=== PATIENT | female | born 1945 | race Caucasian/White ===

== ENCOUNTER 2023-03-22 08:51 | Outpatient (OUT) | payer MEDICARE, SELFPAY ==
--- NOTE | 2023-03-22 09:07 | MM_ITS ---
Patient: BARBARA WILLIAM Exam Date: 03/22/2023 : 1945 Gender:F Ordering : DR Camelia Najera M.D. Admission #: [id number] Family : Order #: [id number] CLICK HERE TO VIEW EXAM RADIOLOGY REPORT PROCEDURE: MM TOMOSYNTHESIS SCREENING BI COMPARISON: MG MAMM SCREEN 3D PATRICIA CAD, 02/20/2021. MG MAMM SCREEN 3D PATRICIA CAD, 02/22/2022. INDICATIONS: Screening Calculator Name NCI Breast Cancer Risk Assessment Tool 5 Year Breast Cancer Risk 1.30% Lifetime Breast Cancer Risk 2.60% Personal Breast Cancer No Personal Ovarian Cancer No Treatments None Family Cancers Aunt-maternal with breast cancer at age ~70; Father with bone cancer at age 75. LOCATION: [facility] BREAST COMPOSITION: Scattered areas fibroglandular density. FINDINGS: DIAGNOSTIC CATEGORY 1--NEGATIVE. NO CHANGE FROM COMPARISON ASSESSMENT. Scattered benign-appearing calcifications are present. Scattered benign-appearing lymph nodes are present. RIGHT BREAST: No significant suspicious finding. LEFT BREAST: No significant suspicious finding. RECOMMENDATIONS: ROUTINE MAMMOGRAM AND CLINICAL EVALUATION IN 12 MONTHS. PLEASE NOTE: A NORMAL MAMMOGRAM DOES NOT EXCLUDE THE POSSIBILITY OF BREAST CANCER. A CLINICALLY SUSPICIOUS PALPABLE LUMP SHOULD BE BIOPSIED. Dictated by: Everette Perez MD on 03/22/2023 at 10:50 Approved by: Everette Perez MD on 03/22/2023 at 10:51
[2023-03-22 09:44] LABS: Basophils Percent Auto 0.9 % (0.2-2.0); Eosinophils Absolute Auto 0.2 10^3/uL (0.0-0.7); Eosinophils Percent Auto 4.6 % (0.9-7.0); Hematocrit 42.6 % (36.0-48.0); Immature Granulocytes Abs Auto 0.01 10^3/uL (0.00-0.03); Immature Granulocytes Pct Auto 0.2 % (0.0-0.5); Lymphocytes Absolute Auto 0.8 10^3/uL (1.2-3.8); Lymphocytes Percent Auto 19.3 % (20.5-60.0); Mean Corpuscular HGB Conc 32.9 g/dL (29.9-35.2); Mean Corpuscular Hemoglobin 31.7 pg (26.7-34.0); Mean Corpuscular Volume 96.4 fL (81.0-99.0); Mean Platelet Volume 8.6 fL (9.5-13.5); Monocytes Absolute Auto 0.4 10^3/uL (0.3-0.8); Monocytes Percent Auto 8.4 % (1.7-12.0); Neutrophils Absolute Auto 2.9 10^3/uL (1.4-6.5); Neutrophils Percent Auto 66.6 % (43.0-75.0); Platelet Count 206 10^3/uL (150-450); Red Blood Count 4.42 10^6/uL (4.20-5.40); Red Cell Distribution Width 12.5 % (11.0-15.0); White Blood Count 4.3 10^3/uL (4.0-11.0)
[2023-03-22 12:09] LABS: Anion Gap 11.3; Calcium 9.3 mg/dL (8.5-10.1); Carbon Dioxide 30.6 mmol/L (21.0-32.0); Chloride 103 mmol/L (98-107); Chol HDL Ratio 3.7; Cholesterol 230 mg/dL (<=200); Estimated GFR (African America >60 (>=60); Estimated GFR (Non-African Ame 54 (>=60); Glucose 113 mg/dL (74-106); HDL Cholesterol 63 mg/dL (40-60); Potassium 3.9 mmol/L (3.5-5.1); Sodium 141 mmol/L (136-145); Triglycerides 90 mg/dL (<=150)
== END 2023-03-22 08:52 | disposition home or self-care (01) ==
LOC: MAMMO 08:51
PROVIDERS: PCP Family Medicine; Visit Provider Family Medicine
DX: Z12.31 Encounter for screening mammogram for malignant neoplasm of breast (principal); Z80.3 Family history of malignant neoplasm of breast; Z80.9 Family history of malignant neoplasm, unspecified
CPT/HCPCS: 36415; 77063; 77067; 80048; 80061; 85025

== ENCOUNTER 2024-03-26 08:40 | Outpatient (OUT) | payer MEDICARE, SELFPAY ==
--- NOTE | 2024-03-26 08:49 | MM_ITS ---
Patient Name: BARBARA WILLIAM MR#: [id number] : 1945 Exam Date: 03/26/2024 Ordering Doctor: DR Camelia Najera M.D. RADIOLOGY REPORT PROCEDURE: MM TOMOSYNTHESIS SCREENING BI COMPARISON: MM TOMOSYNTHESIS SCREENING BI, 03/22/2023. MG MAMM SCREEN 3D PATRICIA CAD, 02/22/2022. MG MAMM SCREEN 3D PATRICIA CAD, 02/20/2021. MG MAMM PATRICIA SCRN W CAD DIG, 10/13/2012. INDICATIONS: Screening Calculator Name NCI Breast Cancer Risk Assessment Tool 5 Year Breast Cancer Risk 1.30% Lifetime Breast Cancer Risk 2.40% Personal Breast Cancer No Personal Ovarian Cancer No Treatments None Family Cancers Aunt-maternal with breast cancer at age ~70; Father with bone cancer at age 75. LOCATION: [facility] BREAST COMPOSITION: There are scattered areas of fibroglandular density. FINDINGS: DIAGNOSTIC CATEGORY 1--NEGATIVE. RIGHT BREAST: No significant suspicious finding. No significant change has occurred. LEFT BREAST: No significant suspicious finding. No significant change has occurred. RECOMMENDATIONS: ROUTINE MAMMOGRAM AND CLINICAL EVALUATION IN 12 MONTHS. PLEASE NOTE: A NORMAL MAMMOGRAM DOES NOT EXCLUDE THE POSSIBILITY OF BREAST CANCER. A CLINICALLY SUSPICIOUS PALPABLE LUMP SHOULD BE BIOPSIED. Dictated by: Jonny Hernandez M.D. on 03/29/2024 at 18:59 Approved by: Jonny Hernandez M.D. on 03/29/2024 at 19:01
[2024-03-26 08:50] LABS: Basophils Absolute Auto 0.1 10^3/uL (0.0-0.1); Basophils Percent Auto 1.1 % (0.2-2.0); Eosinophils Absolute Auto 0.3 10^3/uL (0.0-0.7); Hematocrit 43.6 % (36.0-48.0); Hemoglobin 14.2 g/dL (12.0-16.0); Immature Granulocytes Abs Auto 0.02 10^3/uL (0.00-0.03); Immature Granulocytes Pct Auto 0.4 % (0.0-0.5); Lymphocytes Absolute Auto 1.1 10^3/uL (1.2-3.8); Mean Corpuscular HGB Conc 32.6 g/dL (29.9-35.2); Mean Corpuscular Hemoglobin 31.5 pg (26.7-34.0); Mean Corpuscular Volume 96.7 fL (81.0-99.0); Mean Platelet Volume 8.6 fL (9.5-13.5); Monocytes Absolute Auto 0.5 10^3/uL (0.3-0.8); Monocytes Percent Auto 9.9 % (1.7-12.0); Neutrophils Absolute Auto 2.7 10^3/uL (1.4-6.5); Neutrophils Percent Auto 58.6 % (43.0-75.0); Platelet Count 233 10^3/uL (150-450); Red Blood Count 4.51 10^6/uL (4.20-5.40); Red Cell Distribution Width 12.6 % (11.0-15.0); White Blood Count 4.7 10^3/uL (4.0-11.0)
--- OUTSIDE RECORDS SUMMARY | 2024-03-26 08:50 | XMS_ITS | CCD ---
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 emergency department (room). Dr. Wisdom obtained history and examined the patient, I am acting as scribe for Dr. Wisdom/lesley, PLAN: We have discussed (L) knee xrays with patient at bedside. Patient is pleased with her left knee progress as she admits her left knee is better now than it was prior to sx. She has good strength / ROM of her left knee with examination today. After examination of her right knee today we are recommending a referral to Dr. Quick to further discuss visco. We have discussed her HEP and restrictions and will see her back in 3 months to reassess her right knee, if exam warrants we may recommend a (R) TKA. Tamela Wisdom D.O. documented in this encounter [facility] 03-18-2023 Evaluation note Encounter Date Diagnosis Assessment Notes Mar, Medicare annual wellness visit, subsequent (ICD-10 - Z00.00) Personalized health advice was given to the beneficiary including a written plan for screenings discussed and provided. Advanced care planning reviewed and/or information given as requested. Additional counseling was provided here today in regards to, [ ]. The above visit was performed by [ ], under direct supervision of [ ]. Document reviewed and amended by provider signed below. Mar, Ganglion of right wrist (ICD-10 - M67.431) Declines referral to ortho at this time. Mar, Overactive bladder (ICD-10 - N32.81) chronic problem. pt states it is resolved with this med. Mar, Essential (primary) hypertension (ICD-10 - I10) Blood pressure remains well controlled at this time. Denies cardiac symptoms. Shows no signs or symptoms or poor control. Patient to continue with above medication and we will continue to monitor. Advised to pay attention to body and symptoms. Any developing patterns. Stay well hydrated. Mar, Screening mammogram for breast cancer (ICD-10 - Z12.31) [employer] Other Evaluation noteNo [employer] Other Evaluation noteNo assessment information available [facility] Work Phone: Evaluation note* Diagnosis Acute pain of left knee- Primary History of total knee arthroplasty, left Primary osteoarthritis of right knee documented in this encounter [facility]* Diagnosis Onset Date Resolution Status Other chronic pain acute Primary osteoarthritis of right knee acute [facility] Work Phone: Evaluation note* Diagnosis Onset Date Resolution Status Other chronic pain acute Primary osteoarthritis of right knee acute Essential (primary) hypertension acute Screening mammogram for breast cancer acute [facility] Work Phone: Evaluation note* Diagnosis Intermediate stage nonexudative age-related macular degeneration of both eyes- Primary Bilateral posterior capsular opacification Unspecified after-cataract Dry eyes Unspecified tear film insufficiency Blepharitis of upper and lower eyelids of both eyes, unspecified type documented in this encounter [facility] HealthcareHistory general Narrative - Reported* Type Description Date Medical History Problem Title : ADL Summary, Problem Description : ADL Summary, Problem Comment : Bathing~independent^Dressing~independent^Eating~independent^Guy leting~independent^Transferring~independent^Continence~independ ent, Problem Status : Active,, Medical History Problem Title : Adul t BMI between 22 kg/m2 and 30 kg/m2, Problem Description : Adult BMI between 22 kg/m2 and 30 kg/m2, Problem Comment : 0~0~0, Problem Status : Active,, Medical History Problem Title : Adul t BMI greater than or equal to 30 kg/m2, Problem Description : Adult BMI greater than or equal to 30 kg/m2, Problem Comment : 0~0~0, Problem Status : Active,, Medical History Problem Title : Adul t BMI less than 22 kg/m2, Problem Description : Adult BMI less than 22 kg/m2, Problem Comment : 0~0~0, Problem Status : Active,, Medical History Problem Title : adva nced directive reviewed, Problem Description : advanced directive reviewed, Problem Comment : Done, Problem Status : Active,, Medical History Problem Title : card iac risk group, Problem Description : cardiac risk group, Problem Comment : B, Problem Status : Active,, Medical History Problem Title : ches t wall assessment, physical exam, Problem Description : chest wall assessment, physical exam, Problem Comment : no deformities or breast masses noted. , Problem Status : Active,, Medical History Problem Title : Chil d BMI less than 18.5 kg/m2, Problem Description : Child BMI less than 18.5 kg/m2, Problem Comment : 0~0~0, Problem Status : Active,, Medical History Problem Title : comp liance with medical treatment, Problem Description : compliance with medical treatment, Problem Comment : Done, Problem Status : Active,, Medical History Problem Title : gloria nary heart disease (CHD), calculated 10 year mortality risk, Problem Description : coronary heart disease (CHD), calculated 10 year mortality risk, Problem Comment : 11 %, Problem Status : Active,, Medical History Problem Title : Depr ession Screening, Problem Description : Depression Screening, Problem Comment : Negative, Problem Status : Active,, Medical History Problem Title : Depr ession: Baseline PHQ-9 total score?, Problem Description : Depression: Baseline PHQ-9 total score?, Problem Comment : 0, Problem Status : Active,, Medical History Problem Title : Diab etes Mellitus, Problem Description : Diabetes Mellitus, Problem Comment : No, Problem Status : Active,, Medical History Problem Title : Fall assessment-Total score, Problem Description : Fall assessment-Total score, Problem Comment : Complete Low Risk, Problem Status : Active,, Medical History Problem Title : Fall Risk Assessment: I am worried about falling, Problem Description : Fall Risk Assessment: I am worried about falling, Problem Comment : No, Problem Status : Active,, Medical History Problem Title : Fall Risk Assessment: Sometimes I feel unsteady when I am walking, Problem Description : Fall Risk Assessment: Sometimes I feel unsteady when I am walking, Problem Comment : No, Problem Status : Active,, Medical History Problem Title : fall s in the last twelve months, Problem Description : falls in the last twelve months, Problem Comment : No, Problem Status : Active,, Medical History Problem Title : Fall s: Risk Assessment - Patient screened for falls, fall risk, Problem Description : Falls: Risk Assessment - Patient screened for falls, fall risk, Problem Comment : Done, Problem Status : Active,, Medical History Problem Title : get up and go (mobility test), Problem Description : get up and go (mobility test), Problem Comment : 1, Problem Status : Active,, Medical History Problem Title : hype rtension, hx of, Problem Description : hypertension, hx of, Problem Comment : yes, Problem Status : Active,, Medical History Problem Title : IADL Summary, Problem Description : IADL Summary, Problem Comment : Transportation~independent^Meal/Food Preparation~independent^Shopping Errands~independent^Housekeeping/Chores~independent^Money Management/Finances~independent^Medication Management~independent^Ability to Use Telephone~independent^Laundry~independent, Problem Status : Active,, Medical History Problem Title : Inju ry sustained from fall(s)?, Problem Description : Injury sustained from fall(s)?, Problem Comment : No, Problem Status : Active,, Medical History Problem Title : Is P atient on Medicare. Used for Residency Programs to evaluate precepting guidelines from Medicare, Problem Description : Is Patient on Medicare. Used for Residency Programs to evaluate precepting guidelines from Medicare, Problem Comment : Yes, Problem Status : Active,, Medical History Problem Title : [facility] Annual Wellness Exam, Problem Description : Medicare Annual Wellness Exam, Problem Comment : [id number], Problem Status : Active,, Medical History Problem Title : [facility] Part B,CMOD Checklist #1, Problem Description : Medicare Part B,CMOD Checklist #1, Problem Comment : Yes, Problem Status : Active,, Medical History Problem Title : Ment al Status Exam summary of all, Problem Description : Mental Status Exam summary of all, Problem Comment : Orientation to Time~10/05^Orientation to Place~10/05^Registration~08/03^Attention/Calculation~10/05^Recall~08/03 ^Language-name 2 objects~2/2^Language-repeat~06/03^Language-follow 3-step command~08/03^Language-read and follow direction~06/03^Write a sentence~06/03^Copy design~06/03, Problem Status : Active,, Medical History Problem Title : Ment al Status Exam total score, Problem Description : Mental Status Exam total score, Problem Comment : , Problem Status : Active,, Medical History Problem Title : mini mental status exam, score, Problem Description : mini mental status exam, score, Problem Comment : 30, Problem Status : Active,, Medical History Problem Title : no k nown problems, Problem Description : no known problems, Problem Comment : F, Problem Status : Active,, Medical History Problem Title : Numb er of previous fall in past year, Problem Description : Number of previous fall in past year, Problem Comment : 0, Problem Status : Active,, Medical History Problem Title : oste oporosis risk, Problem Description : osteoporosis risk, Problem Comment : No, Problem Status : Active,, Medical History Problem Title : past medical history E&M, Problem Description : past medical history E&M, Problem Comment : Fibrocystic breast disease Cervical lymphadenopathy - benign biopsy Choleithiasis, Problem Status : Active,, Medical History Problem Title : past medical history reviewed, Problem Description : past medical history reviewed, Problem Comment : reviewed - no changes required, Problem Status : Active,, Medical History Problem Title : Teresa ent Health Questionaire 9 item inventory, Problem Description : Patient Health Questionaire 9 item inventory, Problem Comment : None, Problem Status : Active,, Medical History Problem Title : PHQ- 9 (patient questionnaire) score, Problem Description : PHQ-9 (patient questionnaire) score, Problem Comment : 0, Problem Status : Active,, Medical History Problem Title : PHQ- 9 Diagnosis, Problem Description : PHQ-9 Diagnosis, Problem Comment : No indication of depression, Problem Status : Active,, Medical History Problem Title : PHQ2 Questionairre Score, Problem Description : PHQ2 Questionairre Score, Problem Comment : 0, Problem Status : Active,, Medical History Problem Title : PHQ9 Question One score, Problem Description : PHQ9 Question One score, Problem Comment : 0, Problem Status : Active,, Medical History Problem Title : PHQ9 Question Two score, Problem Description : PHQ9 Question Two score, Problem Comment : 0, Problem Status : Active,, Medical History Problem Title : kamran l disease, hx of, Problem Description : renal disease, hx of, Problem Comment : No, Problem Status : Active,, Medical History Problem Title : very low density lipoproteins, Problem Description : very low density lipoproteins, Problem Comment : 23.0, Problem Status : Active,, Surgical History Problem Title : L kn ee replacement - Stepanic 03/2021, Problem Status : Active, Surgical History Problem Title : past surgical history reviewed, Problem Description : past surgical history reviewed, Problem Comment : reviewed - no changes required, Problem Status : Active, Surgical History Problem Title : surg ical procedures, hx of, Problem Description : surgical procedures, hx of, Problem Comment : Lumbar surgery 2000 - Olivia L hand carpal tunnel surgery - Stepanic 07/18, Problem Status : Active, Surgical History Problem Title : surg ical procedures, hx of, Problem Description : surgical procedures, hx of, Problem Comment : Lumbar surgery 2000 - Olivia, Problem Status : Active, Surgical History 1: Problem Title : s urgical procedures, hx of, Problem Description : surgical procedures, hx of, Problem Comment : Lumbar surgery 2000 - Olivia L hand carpal tunnel surgery - Artis 07/18 L knee arthroscopic surgery 04/2017 - Dr. Wisdom, Problem Surgical History 2: Status : Active, [employer] Other Reason for referral (narrative)* Consultation (Routine) - Authorized Specialty Diagnoses / Procedures Referred By Contalonso t Referred To Contact Pain Medicine Diagnoses Primary osteoarthritis of right knee Procedures AR OFFICE[facility]OUTPATIENT [facility] 60 MINUTES Jr. Tamela Wisdom DO [address] [facility] [address] [place] [address] Regino Quick MD [address] [phone] Referral ID Status Reason Start Date Expiration Date Visits Requested Visits Authorized [id number] Authorized Consult and Treat 03/06/2024 09/02/2024 1 1 [facility] Summary Purpose Family History No Family History Records FoundNo Family History Records FoundNo Family History Records FoundNo Family History Records Found Advance Directives No Advanced Directives Records Found Advance Directive Response Recorded Date/ Time Advance Directives No August 30, 024 11:16am Chief Complaint and Reason for Visit Chief Complaint Cough Chief Complaint REFF BY DR. TAMELA WELLS Reason for Visit Other chronic pain Primary osteoarthritis of right knee Chief Complaint REFF BY DR. TAMELA WELLS MEDICARE WELLNESS Reason for Visit Other chronic pain Primary osteoarthritis of right knee Essential (primary) hypertension Screening mammogram for breast cancer Additional Source Comments INFORMATION SOURCE (unrecogn ized section and content) DATE CREATED AUTHOR 06/26/2021 [facility] DATE CREATED AUTHOR AUTHOR'S ORGANIZ ATION 11/25/2021 [facility] DATE CREATED AUTHOR AUTHOR'S ORGANIZ ATION 03/24/2022 [facility] DATE CREATED AUTHOR AUTHOR'S ORGANIZ ATION 03/26/2024 [facility] EPIC REASON FOR VISIT (unrecogniz ed section and content) Reason Comments Post-op Care Teams (unrecognized sec tion and content) Team Status: Active Member Role Status Dates Camelia Crooks MD Primary Care Provider Active Team Status: Inactive Member Role Status Dates Camelia Crooks MD Primary Care Provider Active Start: August 31, 2023 End: August 31, 2023 Radha Panda OENOLOGIST-C Attending Provider Active S tart: August 31, 2023 End: August 31, 2023 [employer] Relationship Specialty Start Date End Date Camelia Crooks MD [address] [place] [phone] PCP - General Family Medicine 06/06/23 Out[employer] Leader Relationship Specialty Start Date End Date Camelia Crooks MD [address] [place] [phone] PCP - General Family Medicine 06/06/23 Team Status: Inactive Member Role Status Dates Camelia Crooks MD Primary Care Provider Active Start: March 13, 2024 End: March 13, 2024 Regino Quick MD Attending Provider Active Sta rt: March 13, 2024 End: March 13, 2024 Tamela Wisdom Jr, DO Referring Provider Active Start: March 13, 2024 End: March 13, 2024 Team Status: Inactive Member Role Status Dates Camelia Crooks MD Primary Care Provide r, Attending Provider Active Start: March 19, 2024 End: March 19, 2024 Outdoor Adventure Leader Relationship Specialty Start Date End Date Camelia Crooks MD [address] [place] [phone] PCP - General Family Medicine 06/06/23 Outdoor Adventure Leader Relationship Specialty Start Date End Date Camelia Crooks MD [address] [place] [phone] PCP - General Family Medicine 06/06/23 Goals (unrecognized section and content) Goals may be documented in a n alternate section FOR RECORDS PERTAINING TO PATIENTS WHO ARE OR HAVE BEEN ENROLLED IN A CHEMICAL DEPENDENCY/SUBSTANCEABUSE PROGRAM, SOME INFORMATION MAY BE OMITTED. This clinical summary was aggregated from multiple sources. Caution should be exercised in using it in the provision of clinical care. This summary normalizes information from multiple sources, and as a consequence, information in this document may materially change the coding, format and clinical context of patient data. In addition, data may be omitted in some cases. CLINICAL DECISIONS SHOULD BE BASED ON THE PRIMARY CLINICAL RECORDS. [facility] [employer] [facility]. provides no warranty or guarantee of the accuracy or completeness of information in this document.
[2024-03-26 09:43] LABS: Alanine Aminotransferase 29 U/L (14-59); Albumin Globulin Ratio 1.1; Albumin Level 3.6 g/dL (3.4-5.0); Alkaline Phosphatase 88 U/L (46-116); Anion Gap 14.7; Aspartate Amino Transferase 20 U/L (15-37); BUN Creatinine Ratio 15.3; Bilirubin Total 0.6 mg/dL (0.2-1.0); Calcium 9.1 mg/dL (8.5-10.1); Carbon Dioxide 29.3 mmol/L (21.0-32.0); Chloride 104 mmol/L (98-107); Chol HDL Ratio 3.2; Cholesterol 194 mg/dL (<=200); Estimated GFR (African America 58 (>=60 mL/min/1.73m^2); Estimated GFR (Non-African Ame 48 (>=60 mL/min/1.73m^2); Globulin 3.4 g/dL; Glucose 120 mg/dL (74-106); HDL Cholesterol 61 mg/dL (40-60); Sodium 144 mmol/L (136-145); Triglycerides 86 mg/dL (<=150); VLDL CHOLESTEROL 17.2 mg/dL
== END 2024-03-26 08:41 | disposition home or self-care (01) ==
LOC: MAMMO 08:40
PROVIDERS: PCP Family Medicine; Visit Provider Family Medicine
DX: Z12.31 Encounter for screening mammogram for malignant neoplasm of breast (principal); I10 Essential (primary) hypertension; Z80.3 Family history of malignant neoplasm of breast; Z80.8 Family history of malignant neoplasm of other organs or systems
CPT/HCPCS: 36415; 77063; 77067; 80053; 80061; 85025

== ENCOUNTER 2024-07-16 08:56 | Emergency (ER) | payer MEDICARE, SELFPAY ==
[2024-07-16 09:01] VITALS: BP 150/96; PULSE 98; TEMP 36.8; O2SAT 95; BMI 29.1
--- OUTSIDE RECORDS SUMMARY | 2024-07-16 09:08 | XMS_ITS | CCD ---
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 Best Eye Response: (E4) spontaneous [...] patient cognitively impaired not cognitively impaired Interventions: [place] Fall Interventions: LOW INTERVENTIONS: *patient oriented to [...] Past Medical History Reviewedno Electronic Signatures: Antonella Carter (RN) (Signed 21-Nov-2021 16:34) Entered: Risk Screens, Pain, Travel History, Chart Review, Scores, Past Medical History Authored: Quick Triage, Risk Screens, Pain, Travel History, Chart Review, Scores, Past Medical History Last Updated: 21-Nov-2021 16:34 by Antonella Carter (RN) [facility] XR KUB 1 VIEWon 08-04-2021 XR [...] by: JAVI NAVARRETE Date: 2021-08-04 11:53 Normal [facility] XR femur BIon 02-01-2021 XR femur BI [facility] Main Pooler [address] [place] [address] XRay Report Signed Patient: Barbara Boss MR#: [id number] : 1945 Acct:[id number] Age/Sex: 75 / F ADM Date: 02/01/21 Loc: ICXD Room: Type: [facility] Attending Dr: Robin Veloz PA-C Ordering Provider: Robin Veloz PA-C Date of Service: 02/01/21 XR/XR femur BI: Z01.818 ([id number]) XR/XR tibia/fibula BI: Z01.818 Copies to: Robin Veloz PA-C 2 views bilateraltibia and fibula [...] Tylor Hough M.D.02/01/2021 2:43 PM Dictation Location: [place] [address] Transcribed By: [facility] 02/01/21 1443 Dictated By: Tylor Hough DO 02/01/21 1441 Signed By: 02/01/21 1443 Normal [facility] Vital Signs Date Time Vital Sign Value Performing Clinician Facility 07-06-2024 10:28-0500 Body height 167.[address] [facility] 07-06-2024 10:28-0500 Body mass index (BMI) [Ratio] 29.3 kg/m2 [facility] 07-06-2024 10:28-0500 Body weight 82.[address] [facility] 07-06-2024 10:28-0500 Diastolic blood pressure 98 mm[Hg] [facility] 07-06-2024 10:28-0500 Heart rate 81 /min [facility] 07-06-2024 10:28-0500 Systolic blood pressure 153 mm[Hg] [facility] 05-11-2024 09:38-0500 Diastolic blood pressure 80 mm[Hg] [facility] 05-11-2024 09:38-0500 Heart rate 55 /min [facility] 05-11-2024 09:38-0500 SaO2% (BldA) [Mass fraction] 97 % [facility] 05-11-2024 09:38-0500 Systolic blood pressure 130 mm[Hg] [facility] 04-28-2024 12:59-0500 Body height 167.[address] [facility] 04-28-2024 12:59-0500 Body mass index (BMI) [Ratio] 29.3 kg/m2 [facility] 04-28-2024 12:59-0500 Body temperature 97.2 [degF] [facility] 04-28-2024 12:59-0500 Body weight 82.[address] [facility] 04-28-2024 12:59-0500 Diastolic blood pressure 82 mm[Hg] [facility] 04-28-2024 12:59-0500 Heart rate 74 /min [facility] 04-28-2024 12:59-0500 SaO2% (BldA) [Mass fraction] 94 % [facility] 04-28-2024 12:59-0500 Systolic blood pressure 138 mm[Hg] [facility] 04-02-2024 16:05-0400 Diastolic blood pressure 80 mm[Hg] [facility] 04-02-2024 16:05-0400 Heart rate 88 /min [facility] 04-02-2024 16:05-0400 SaO2% (BldA) [Mass fraction] 93 % [facility] 04-02-2024 16:05-0400 Systolic blood pressure 122 mm[Hg] [facility] 03-19-2024 09:39-0400 Body height 167.[address] [facility] 03-19-2024 09:39-0400 Body mass index (BMI) [Ratio] 29.3 kg/m2 [facility] 03-19-2024 09:39-0400 Body weight 82.[address] [facility] 03-19-2024 09:39-0400 Diastolic blood pressure 88 mm[Hg] [facility] 03-19-2024 09:39-0400 Heart rate 89 /min [facility] 03-19-2024 09:39-0400 Systolic blood pressure 138 mm[Hg] [facility] 03-13-2024 09:02-0400 Body weight 83.[address] [facility] 03-13-2024 09:02-0400 Diastolic blood pressure 80 mm[Hg] [facility] 03-13-2024 09:02-0400 Heart rate 93 /min [facility] 03-13-2024 09:02-0400 Systolic blood pressure 134 mm[Hg] [facility] 08-31-2023 11:41-0400 Body height 167.[address] [facility] 08-31-2023 11:41-0400 Body mass index (BMI) [Ratio] 29 kg/m2 [facility] 08-31-2023 11:41-0400 Body temperature 98.1 [degF] [facility] 08-31-2023 11:41-0400 Body weight 81.[address] [facility] 08-31-2023 11:41-0400 Heart rate 94 /min [facility] 08-31-2023 11:41-0400 Respiratory rate 18 /min [facility] 08-31-2023 11:41-0400 SaO2% (BldA) [Mass fraction] 96 % [facility] 03-18-2023 09:30-0400 Body height 167.64 cm Camelia Crooks Other [facility] Other 03-18-2023 09:30-0400 Body mass index (BMI) [Ratio] 29.15 kg/m2 Camelia Crooks Other [facility] Other 03-18-2023 09:30-0400 Body weight 81.92 kg Camelia Crooks Other [facility] Other 03-18-2023 09:30-0400 Diastolic blood pressure 91 mm[Hg] Camelia Crooks Other [facility] Other 03-18-2023 09:30-0400 Systolic blood pressure 135 mm[Hg] Camelia Crooks Other [facility] Other Encounters Encounter Date Encounter Type Care Provider Facility Start: 07-06-2024 End: 07-06-2024 ambulatory [facility] [place] Work Phone: Start: 07-06-2024 End: 07-06-2024 Patient encounter procedure [facility] Work Phone: Start: 06-10-2024 End: 06-10-2024 Bamboo flowsheet Jr. Tamela Gallegos Stepgonzalez DO Work Phone: [facility] Start: 06-10-2024 End: 06-10-2024 Bamboo flowsheet Jr. Tamela Gallegos Stepanic DO Work Phone: [facility] Start: 06-10-2024 End: 06-10-2024 Office outpatient visit 15 minutes Jr. Tamela Wisdom DO Work Phone: [facility] Comment on above: Primary osteoarthrit is of right knee (Primary Dx); Pain in joint of right knee Start: 06-10-2024 End: 06-10-2024 ambulatory TAMELA ROBERT Not Available Start: 05-22-2024 End: 05-22-2024 Patient encounter procedure [facility] Physician [facility] Work Phone: Start: 05-11-2024 End: 05-11-2024 Patient encounter procedure [facility] Physician [facility] Work Phone: Start: 04-28-2024 End: 04-28-2024 Patient encounter procedure [facility] Phys[facility] Work Phone: Start: 04-02-2024 End: 04-02-2024 ambulatory [facility] Work Phone: Start: 04-02-2024 End: 04-02-2024 Patient encounter procedure [facility] Physician [facility] Work Phone: Start: 03-26-2024 Non-patient / Non-visit [facility] Physician [facility] [place] Work Phone: Start: 03-24-2024 End: 03-24-2024 Bamboo flowsheet Barb Mackayer DO Work Phone: [facility] Start: 03-24-2024 End: 03-24-2024 Bamboo flowsheet Barb Velozhler DO Work Phone: [facility] Start: 03-24-2024 End: 03-24-2024 ambulatory BARB VELAZQUEZ Not Available Start: 03-19-2024 End: 03-19-2024 ambulatory [facility] Work Phone: Start: 03-19-2024 End: 03-19-2024 Patient encounter procedure [facility] Phys[facility] Work Phone: Start: 03-13-2024 End: 03-13-2024 ambulatory [facility] Work Phone: Start: 03-13-2024 End: 03-13-2024 Patient encounter procedure [facility] Physician [facility] Work Phone: Start: 03-06-2024 End: 03-06-2024 Bamboo flowsheet Jr. Tamela Gallegos Stepgonzalez DO Work Phone: [facility] Start: 03-06-2024 End: 03-06-2024 Bamboo flowsheet JrKacey Gallegos Stepgonzalez DO Work Phone: [facility] Start: 03-06-2024 End: 03-06-2024 ambulatory .TAMELA Not Available Start: 03-06-2024 End: 03-06-2024 Office outpatient visit 25 minutes Jr. Tamela Wisdom DO Work Phone: [facility] Comment on above: Acute pain of left k nee (Primary Dx); History of total knee arthroplasty, left; Primary osteoarthritis of right knee Start: 11-15-2023 End: 11-15-2023 ambulatory BARB VELAZQUEZ Not Available Start: 10-15-2023 End: 10-15-2023 ambulatory BARB VELAZQUEZ Not Available Start: 10-08-2023 End: 10-08-2023 ambulatory BARB VELAZQUEZ Not Available Start: 09-23-2023 End: 09-23-2023 ambulatory TAMELA ROBERT Not Available Start: 09-11-2023 End: 09-11-2023 ambulatory BARB VELAZQUEZ Not Available Start: 08-31-2023 End: 08-31-2023 ambulatory [facility] Work Phone: Start: 08-31-2023 End: 08-31-2023 Patient encounter procedure [facility] Phys[facility] Work Phone: Start: 06-24-2023 End: 06-24-2023 ambulatory TAMELA ROBERT Not Available Start: 04-08-2023 End: 04-08-2023 ambulatory Camelia Crooks Other [facility] Other Start: 04-08-2023 Telephone encounter Camelia Crooks [facility] Start: 03-22-2023 End: 03-22-2023 ambulatory Camelia Crooks Other [facility] Other Start: 03-22-2023 Telephone encounter Camelia Crooks [facility] Start: 03-18-2023 End: 03-18-2023 ambulatory Camelia Crooks Other [facility] Other Start: 03-18-2023 Patient encounter procedure Camelia Crooks [facility] Start: 03-19-2022 End: 03-20-[address] CAMELIA CROOKS Facility:[facility] Start: 03-12-2022 Adult health examination Nelly Crooks Other [facility] Other Start: 03-12-2022 Pre-procedure evalua tion check Camelia Crooks Other [facility] Other Start: 02-22-2022 End: 02-23-[address] CAMELIA CROOKS Facility:[facility] Start: 08-04-2021 End: 08-05-[address] CAMELIA CROOKS Facility:[facility] Procedures Date Procedure Procedure Detail Performing Clinician Start: 03-24-2024 Computerized ophthal terrance imaging retina Barb Velazquez DO Work Phone: Start: 03-24-2024 End: 03-24-2024 [facility] medical xm&eval intermediate estab pt Intermediate [...] DO Work Phone: Start: 10-26-2014 Screening mammography M jayroberto Crooks Other General examination of patient Camelia Crooks Other Screening for malign ant neoplasm of breast Camelia Crooks Other Plan of Treatment Date Care Activity Detail Author Start: 03-03-2025 End: 03-03-2025 Patient encounter procedure 03/03/2025 10:00 AM EDT Office Visit [facility] [address] [place] [address] Jr. Tamela Wisdom, DO [address] [facility] [address] [place] [address] [facility] Start: 12-08-2024 End: 12-08-2024 Patient encounter procedure 12/08/2024 10:00 AM EDT Office Visit [facility] [address] [place] [address] Jr. Tamela Wisdom, DO [address] [place] [address] [facility] Start: 10-20-2024 End: 10-20-2024 Patient encounter procedure 10/20/2024 9:30 AM EDT Office Visit [facility] [address] [place] [address] Barb Velazquez DO [address] [place] [address] [facility] Start: 06-10-2024 End: 06-10-2024 Patient encounter procedure [facility] Comment on above: Arrived Start: 03-24-2024 End: 03-24-2024 Patient encounter procedure [facility] Comment on above: Arrived Start: 02-02-2024 Influenza vaccination Influenza Vacc ine (#1) [facility] metabo lic 2000 panel - Serum or Plasma [facility] MG Breast - bilatera l Screening [facility] Immunizations Immunization Date Immunization Notes Care Provider Fa cility 05-22-2024 influenza, high dose seasonal, preservative-free [facility] 05-22-2024 influenza virus vaccine, unspecified formulation Hugogonzalez DO Work Phone: [facility] 03-18-2023 influenza virus vaccine, unspecified formulation [facility] 03-18-2023 influenza, high dose seasonal, preservative-free Camelia Crooks Other [facility] Other 03-25-2022 COVID-19 Pfizer (Pediatric) Camelia Crooks Other [facility] 03-12-2022 influenza virus vaccine, split virus (incl. purified surface antigen) Camelia Crooks Other [facility] Other 03-12-2022 influenza virus vaccine, unspecified formulation [facility] 01-28-2020 influenza virus vaccine, split virus (incl. purified surface antigen) Camelia Crooks Other [facility] Other 01-28-2020 influenza virus vaccine, unspecified formulation [facility] 02-18-2018 influenza virus vaccine, split virus (incl. purified surface antigen) Camelia Crooks Other [facility] Other 02-18-2018 influenza virus vaccine, unspecified formulation [facility] 02-18-2018 pneumococcal conjuga te vaccine, 13 valent Cameliarobreto Crooks Other [facility] 02-18-2018 pneumococcal Conjuga te, unspecified formulation; Translations: [Need for prophylactic vaccination against Streptococcus pneumoniae (pneumococcus)] Camelia Crooks Other [facility] Other 03-17-2013 pneumococcal polysaccharide vaccine, 23 valent Camelia Crooks Other [facility] 03-17-2013 tetanus and diphther ia toxoids, adsorbed, preservative free, for adult use (5 Lf of tetanus toxoid and 2 Lf of diphtheria toxoid) Camelia Crooks Other [facility] Payers Date Payer Category Payer Medicaid [employer] MEDICARE A DVANTAGE [id number] 2023 Medicare AETNA MEDICARE A DVANTAGE AETNA MEDICARE REPLACEMENT [id number] 2023-Present [address] [place] [address] [id number] 1959 Medicare [id number] 1945 Unknown [id number] 1945 Unknown [id number] [id number] 1945 Unknown [id number] [id number] 1945 Unknown [id number] 2.16.840.1.958896.3.579.2.1259 1945 Unknown [id number] 2.16.840.1.508897.3.579.2.1259 1945 Unknown [id number] 2.16.840.1.014112.3.579.2.1259 1945 Unknown [id number] 2.16.840.1.717225.3.579.2.1259 1945 Unknown [id number] 2.16.840.1.164223.3.579.2.1259 1945 Unknown [id number] 2.16.840.1.716305.3.579.2.1259 1945 Unknown [id number] 2.16.840.1.595320.3.579.2.1259 1945 Unknown [id number] 2.16.840.1.981774.3.579.2.1259 1945 Unknown [id number] 2.16.840.1.903983.3.579.2.1259 1945 Unknown [id number] 2.16.840.1.763476.3.579.2.1259 Medicare Medicare [id number] Medicare Medicare [id number] Self-pay Self Pay [id number] Social History Date Type Detail Facility Unknown if ever smoked [facility] Other Start: 06-24-2023 End: 06-10-2024 Sex Assigned At [facility] Start: 08-31-2023 End: 08-31-2023 Tobacco smoking status NHIS Never smoked tobacco (finding) [facility] Start: 1945 Sex Assigned At Female F [facility] Start: 12-10-2022 Tobacco use and exposure Smokeless tobacco non-user [facility] Start: 11-15-2023 End: 06-10-2024 Alcoholic beverage intake Current drinker of alcohol (finding) [facility] Start: 06-24-2023 End: 06-10-2024 History of Social function [facility] How [...] at Not on file [facility] Start: 07-06-2024 Sex Female (finding) [facility] Clinical Notes 03-18-2023 to 06-10-2024 Jr. Tamela Wisdom, DO - 06/10/2024 10:00 AM EST Note Date & Type Note Facility 06-10-2024 History of Presen t illness Narrative Images from the original note were not included. HISTORY OF PRESENT ILLNESS: EST PT Barbara Boss is an 78 y.o. @ female. (EST PT) RECHECK (R) KNEE ; S/P USG CORTISONE INJ 03/13/24 (12WKS 5DAYS)- DR QUICK (PT WAS REFERRED FOR [facility]CO) XRAYS, STANDING AP 03/06/24 IN [facility] NO MRI NO MDP / PREDNISONE S/P CORTISONE INJ 03/13/24 - DR QUICK NO [facility] NO PHYSICAL THERAPY PAIN MGMT ; DR QUICK (VISCO REFERRAL) NOTES SOME IMPROVEMENT WITH THE INJECTION ( 1 INJ) ; 50% IMPROVEMENT. DENIES SWELLING. ROM IS STILL OKAY. DENIES WEAKNESS/ POPPING/ CRACKING. DIFFUSE PAIN IN THE FRONT OF THE KNEE. NO HEP. NO SUPPORT BRACES. TAKE ADVIL PRN FOR PAIN. NO CREAMS. OLD NOTE : PREVIOUS (L) TKA 03/28/21 - DR WISDOM ALLERGIES: Allergies Allergen Reactions Meperidine Sweats, chills, confusion Meperidine Hcl Other Reaction(s): Chills / Loss of Conscienace HOME MEDICATIONS: Current Outpatient Medications Medication Instructions aspirin 81 MG EC tablet 1 tablet Orally two times daily Calcium Carbonate-Vitamin D (Oyster Shell Calcium/D) 500-5 MG-MCG tablet 1 tablet, Oral, 2 times daily with meals hydroCHLOROthiazide (HYDRODIURIL) 12.5 mg, Oral, Daily RT Lutein-Zeaxanthin 25-5 MG capsule Orally Myrbetriq 50 MG 24 hr tablet Every 24 hours PHYSICAL EXAM: Knee Musculoskeletal Exam Gait Antalgic: right Inspection Leg length disparity: no discrepancy Right Erythema: none Effusion: mild Edema: none Ecchymosis: none Deformity: none Alignment: varus Palpation Right Right knee palpation is unremarkable. Increased warmth: none Masses: none Crepitus: patellofemoral and medial Tenderness: present Medial joint line: moderate Patella: mild Range of Motion Right Right knee range of motion is normal and full. Active extension: 10 Passive extension: 5 Active flexion: 115 Passive flexion: 120 Strength Right Right knee strength is normal. Extension: 5/5. Extension is affected by pain. Flexion: 5/5. Flexion is affected by pain. Instability Right Instability signs: none - stable Anterior drawer: normal Neurovascular Right Right knee neurovascular exam is normal. Pulses - PT: normal Posterior tibial: 2+ Capillary refill: warm and well-perfused Special Signs Right Right knee special signs are normal. Patellar apprehension: none General Constitutional: appears stated age Labored breathing: no Psychiatric: normal mood and affect Neurological: alert Skin: intact Lymphadenopathy: none Vitals: There is no height or weight on file to calculate BMI. Tobacco Use: Low Risk (06/10/2024) Patient History Smoking Tobacco Use: Never Smokeless Tobacco Use: Never Passive Exposure: Not on file Alcohol Use: Not At Risk (06/24/2023) AUDIT-C Frequency of Alcohol Consumption: 4 or more times a week Average Number of Drinks: 1 or 2 Frequency of Binge Drinking: Never IMAGING: Procedures No orders of the defined types were placed in this encounter. ASSESSMENT: ICD-10-CM 1. Primary osteoarthritis of right knee M17.11 2. Pain in joint of right knee M25.561 PLAN: Severe varus deformity right knee. She got a cortisone injection from pain management, not Visco supplementation. She is significantly improved and she is pleased with her progress. We'll see her back in 6 months for repeat x-rays and physical exam of her right knee. Questions answered in laymen terms at the bedside. The diagnosis, home exercise plan and any ongoing restrictions/ recommendations reviewed. If unable to be reached in office, I recommend evaluation at nearest Emergency Room if any symptoms worsened or new symptoms develop for requiring urgent evaluation. documented in this encounter [facility] 04-28-2024 Evaluation note Diagnosis Onset Date Resolution Bronchitis acute April 28, 2024 12:55pm Other chronic pain acute Decemb er 2023 9:28am Primary osteoarthritis of right knee acute May 11 9:28am [facility] Work Phone: 1(846) 275-769710-22-2024 NoteRight Eye Quality was good. Scan locations included subfoveal. Progression has been stable. Findings include abnormal foveal contour, pigment epithelial detachment. Left Eye Quality was good. Scan locations included subfoveal. Progression has been stable. Findings include normal foveal contour, pigment epithelial detachment.[facility] [id number] History of Present illness Narrative* Barb Velazquez DO - 03/24/2024 9:00 AM EDT Images from the original note were not [...] laser capsulotomy, they are to notify their agriculture department chair promptly if they have a significant change [...] lid scrubs were recommended. documented in this encounterFre[facility] [id number] History of Present illness Narrative* Jr. Tamela Wisdom DO - 03/06/2024 9:30 AM EDT Images from the original note were not included. HISTORY OF PRESENT ILLNESS: EST PT Barbara Boss is an 78 y.o. @ female. (EST PT) HERE FOR BIENNIAL CHECK OF (L) TKA 03/28/21 (~3 YRS) XRAYS DONE TODAY, 03/06/24 IN EPIC NO BONE SCAN NO MDP / PREDNISONE [...] surgical position and alignment of prosthetic components withoutevidence of loosening or wear to the femoral, [...] was prior to sx. She has good strength/ ROM of her left knee with examination today. After examination of her right knee today we are recommending a referral to Dr. Quick to further discuss visco. We have discussed her HEP and restrictions and will see her back in 3 months to reassess her right knee, if exam warrants we may recommend a (R) TKA. Tamela Wisdom D.O. documented in this encounterFreeman Cancer [id number] Evaluation note* Encounter Date Diagnosis Assessment Notes Treatment Notes Treatment Clinical Notes Mar, Medicare annual wellness visit, subsequent [...] mammogram for breast cancer (ICD-10 - Z12.31) [facility] Other Evaluation noteNo InformationNortFairmount Behavioral Health System [facility] Other Evaluation noteNo assessment information available [facility] Work Phone: Evaluation note* Diagnosis Acute pain of left knee- Primary History of total knee arthroplasty, left Primary osteoarthritis of right knee [facility] this encounter [facility] Diagnosis Onset Date Resolution Status Other chronic pain acute Primary osteoarthritis of right knee acute [facility] Work Phone: Evaluation note* Diagnosis Onset Date Resolution Status Other chronic pain acute Primary osteoarthritis of right knee acute Essential (primary) hypertension acute Screening mammogram for breast cancer acute [facility] Work Phone: Evaluation note* Diagnosis Intermediate stage nonexudative age-related macular degeneration of both eyes- Primary Bilateral posterior capsular opacification Unspecified after-cataract Dry eyes Unspecified tear film insufficiency Blepharitis of upper and lower eyelids of both eyes, unspecified type documented [facility] this encounter [facility]* Diagnosis Onset Date Resolution Status Other chronic pain acute Primary osteoarthritis of right knee acute Essential (primary) hypertension acute Medicare annual wellness visit, subsequent acute Overactive bladder acute Primary osteoarthritis of right knee acute Screening mammogram for breast cancer acute Other chronic pain acute Primary osteoarthritis of right knee acute [facility] Work Phone: Evaluation note* Diagnosis Primary osteoarthritis of right knee- Primary Pain in joint of right knee documented in this encounter [facility] general Narrative - Reported* Type Description [...] : Active,, Medical History Problem Title : [facility] Annual Wellness Exam, Problem Description : Medicare Annual Wellness Exam, Problem Comment : [id number], Problem Status : Active,, Medical History Problem Title : [facility] Part B,CMOD Checklist #1, Problem Description : Medicare Part B,CMOD Checklist #1, Problem Comment : Yes, Problem Status : Active,, Medical History Problem Title : Ment al Status Exam summary of all, Problem Description : Mental Status Exam summary of all, Problem Comment : Orientation to Time~10/05^Orientation to Place~10/05^Registration~08/03^Attention/Calculation~10/05^Recall~08/03 ^Language-name 2 objects~07/05^Language-repeat~06/03^Language-follow 3-step command~08/03^Language-read and follow direction~06/03^Write a sentence~06/03^Copy [...] hx of, Problem Comment : Lumbar surgery 2000, Problem Status : Active, Surgical History 1: Problem Title : s urgical procedures, hx of, Problem Description : surgical procedures, hx of, Problem Comment : Lumbar surgery 2000 - Olivia L hand carpal tunnel surgery - [facility] 07/18 L knee arthroscopic surgery 04/2017 - Dr. Wisdom, Problem Surgical History 2: Status : Active, [place] Other Reason for referral (narrative)* Consultation (Routine) - Authorized Specialty Diagnoses / Procedures Referred By Contac t Referred To Contact Pain Medicine Diagnoses Primary osteoarthritis of right knee Procedures [facility] [place] 60 MINUTES Jr. Tamela Wisdom DO [address] [facility] [address] [place] [address] Regino Quick MD [address] [address] Referral ID Status Reason Start Date Expiration Date Visits Requested Visits Authorized [id number] Authorized Consult and Treat 03/06/2024 09/02/2024 1 1 [facility] Summary Purpose Family History No Family History Records FoundNo Family History Records FoundNo Family History Records FoundNo Family History Records Found Advance Directives Advance Directive Response Recorded Date/ Time Advance Directives No August 30 11:16am Advance Directive Response Recorded Date/ Time Advance Directives No August 30 10:16am Chief Complaint and Reason for Visit Chief Complaint Cough Chief Complaint REFF [facility] Reason for Visit Other chronic pain Primary osteoarthritis of right knee Chief Complaint REFF BY DR. TAMELA WELLS MEDICARE WELLNESS Reason for Visit Other chronic pain Primary osteoarthritis of right knee Essential (primary) hypertension Screening mammogram for breast cancer Chief Complaint REFF BY DR. TAMELA [facility]LL[facility] STEROID INJ TO RIGHT KNEE Reason for Visit Other chronic pain Primary osteoarthritis of right knee Essential (primary) hypertension Medicare annual wellness visit, subsequent Overactive bladder Primary osteoarthritis of right knee Screening mammogram for breast cancer Other chronic pain Primary osteoarthritis of right knee Chief Complaint Admit Date cough April 28, 2024 12:55pm 6 week f/u after steroid to right knee D ecember 2023 9:28am flu shot May 22, 2024 9:41am back pain July 06, 2024 1 0:09am Reason for Visit Admit Date Bronchitis April 28, 2024 12:55pm Other chronic pain May 11, 2024 9 :28am Primary osteoarthritis of right knee Dec ember 2023 9:28am Additional Source Comments INFORMATION SOURCE (unrecogn ized section and content) DATE CREATED AUTHOR 06/26/2021 [facility] DATE CREATED AUTHOR AUTHOR'S ORGANIZ ATION 11/25/2021 [facility] DATE CREATED AUTHOR AUTHOR'S ORGANIZ ATION 03/24/2022 [facility] DATE CREATED AUTHOR AUTHOR'S ORGANIZ ATION 06/15/2024 [facility] EPIC REASON FOR VISIT (unrecogniz ed section and content) Reason Comments Post-op Reason Comments Pain Care Teams (unrecognized sec tion and content) Team Status: Active Member Role Status Dates Camelia Crooks MD Primary Care Provider Active Team Status: Inactive Member Role Status Dates Camelia Crooks MD Primary Care Provider Active Start: August 31, 2023 End: August 31, 2023 Radha Panda , HARVINDER-C Attending Provider Active S tart: August 31, 2023 End: August 31, 2023 Drug And Alcohol Counsellor Relationship Specialty Start Date End Date Camelia Crooks MD [address] [place] [address] PCP - General Family Medicine 06/06/23 Drug And Alcohol Counsellor Relationship Specialty Start Date End Date Camelia Crooks MD [address] [place] [address] PCP - General Family Medicine 06/06/23 Team [...] March 19, 2024 End: March 19, 2024 Drug And Alcohol Counsellor Relationship Specialty Start Date End Date Camelia Crooks MD [address] [place] [address] PCP - General Family Medicine 06/06/23 Drug And Alcohol Counsellor Relationship Specialty Start Date End Date Camelia Crooks MD [address] [place] [address] PCP - General Family Medicine 06/06/23 Team Status: Active Member Role Status Dates Camelia Crooks MD Primary Care Provide r, Attending Provider Active Start: March 26, 2024 Team Status: Inactive Member Role Status Dates Camelia Crooks MD Primary Care Provider Active Start: April 02, 2024 End: April 02, 2024 Regino Quick MD Attending Provider Active Sta rt: April 02, 2024 End: April 02, 2024 Drug And Alcohol Counsellor Relationship Specialty Start Date End Date Camelia Crooks MD [address] [place] [address] PCP - [facility] Medicine 06/06/23 Drug And Alcohol Counsellor Relationship Specialty Start Date End Date Camelia Crooks MD [address] [place] [address] PCP - [facility] Medicine 06/06/23 Team Status: Inactive Member Role Status Dates Camelia Crooks MD Primary Care Provider Active Start: April 28, 2024 End: April 28, 2024 Archana Gonzalez APRN BULLET SWAGING MACHINE ADJUSTER-C Attending Provider Active Start: April End: April 28, 2024 Team Status: Inactive Member Role Status Dates Camelia Crooks MD Primary Care Provider Active Start: May 11, 2024 End: May 11, 2024 Regino Quick MD Attending Provider Active Sta rt: May 11, 2024 End: May 11, 2024 Team Status: Inactive Member Role Status Dates Camelia Crooks MD Primary Care Provider Active Start: May 22, 2024 End: May 22, 2024 Erik Bagley DO Attending Provider Active Sta rt: May 22, 2024 End: May 22, 2024 Team Status: Inactive Member Role Status Dates Camelia Crooks MD Primary Care Provide r, Attending Provider Active Start: July 06, 2024 End: July 06, 2024 Goals (unrecognized section and content) Goals may [...] BE BASED ON THE PRIMARY CLINICAL RECORDS. [facility]. provides no warranty or guarantee of the accuracy or completeness of information in this document.
--- NOTE | 2024-07-16 09:10 | XR_ITS ---
The [address] [address] Patient Name: BARBARA WILLIAM MRN: [id number] date: 1945 Sex: F Assigned Patient Location: ER Current Patient Location: ER Accession/Order Number: [id number] Exam Date: 07/16/2024 09:16 Report Date: 07/16/2024 09:38 At the request of: BELÉN CANAS Procedure: XR wrist LT min 3V PROCEDURE: XR wrist LT min 3V HISTORY: fall COMPARISON: None. FINDINGS: BONES:Transverse fracture through distal radial metaphysis with slight posterior offset (3 mm) and moderate dorsal angulation of the distal articular surface. No appreciable fracture of the ulna. Intact radiocarpal joint. Marked degenerative changes of the scaphoid-trapezium carpal joint. SOFT TISSUES:Mild soft tissue swelling surrounding the wrist. EFFUSION:None visible. OTHER: Negative. XR/XR wrist LT min 3V IMPRESSION: 1. Acute mildly displaced and moderately angulated fracture of the distal radial metaphysis. 2. Degenerative changes of the carpal joints. Electronically authenticated by: ALVINO ALDRIDGE Date: 07/16/2024 09:38
--- NOTE | 2024-07-16 09:11 | ED_ITS ---
HPI HPI - Extremity Injury (Upper) General Chief Complaint: Extremity Injury, Upper Stated Complaint: FELL, UPPER EXTREMITY PAIN Time Seen by Provider: 07/16/24 08:57 Source: patient Mode of arrival: walk-in History of Present Illness HPI narrative: 78-year-old female presents for pain in her left wrist. She slipped and fell on ice about an hour ago. She is right-handed. No weakness or numbness. She is worried she broke her wrist. Related Data Allergies Allergy/AdvReac Type Severity Reaction Status Date / Time meperidine (From Demerol) AdvReac Severe Vomiting Verified 07/16/24 09:01 Opioid HPI Opioid Management Most Recent Pain and Opioid Data: Last Pain Scale 6 07/16/24 09:06 07/16/24 Review of Systems ROS Narrative A ten point review of systems is negative except as noted above. PFSH PFSH Social History Little interest or pleasure in doing things: not at all Feeling down, depressed, or hopeless: not at all Exam Narrative Exam Narrative: Nurses note and vital signs reviewed and patient is not hypoxic. General: The patient appears in no acute distress. She is sitting on the cart. Skin: Warm, dry, no pallor noted. There is no rash noted. Head: Normocephalic, atraumatic Eye: Normal conjunctiva, no drainage Ears, Nose, Mouth, and Throat: oral mucosa is moist. Nares patent. Cardiovascular: Regular Rate and Rhythm Respiratory: Patient is in no distress, no accessory muscle use Back: non-tender GI: Nontender Musculoskeletal: She has swelling and some tenderness in the left wrist. Radial pulse 2+. Left elbow nontender and fingers have full range of motion. Skin intact. Neurological: A&O, normal speech Psychiatric: Cooperative Constitutional Vital Signs, click to edit/add: Last Vital Signs Temp 98.2 F 07/16/24 09:01 Pulse 98 H 07/16/24 09:01 Resp 18 07/16/24 09:01 BP 150/96 H 07/16/24 09:01 Pulse Ox 95 07/16/24 09:01 Course Vital Signs Vital signs: Vital Signs Temperature 98.2 F 07/16/24 09:01 Pulse Rate 98 H 07/16/24 09:01 Respiratory Rate 18 07/16/24 09:01 Blood Pressure 150/96 H 07/16/24 09:01 Pulse Oximetry 95 07/16/24 09:01 Temperature 98.2 F 07/16/24 09:01 Pulse Rate 98 H 07/16/24 09:01 Respiratory Rate 18 07/16/24 09:01 Blood Pressure 150/96 H 07/16/24 09:01 Pulse Oximetry 95 07/16/24 09:01 MDM - Extremity Injury (Upper) MDM Narrative Medical decision making narrative: Distal radius fracture is identified. The likely need for surgery was discussed with her and she has a preferred orthopedist, Dr. Wisdom. She will follow-up with him. Splint applied by me, application is appropriate, she is neurovascular intact. Sling also applied, application checked by me and found to be appropriate, she is neurovascular intact. Treatment diagnosis and follow- up were discussed with the patient. Differential Diagnosis Differential diagnosis: Likely other (Wrist sprain, wrist fracture) Imaging Data Left wrist x-ray: Radiologist's impression: ITS Impressions Wrist X-Ray 07/16/24 09:10 IMPRESSION: 1. Acute mildly displaced and moderately angulated fracture of the distal radial metaphysis. 2. Degenerative changes of the carpal joints. Electronically authenticated by: ALVINO ALDRIDGE Date: 07/16/2024 09:38 Discharge Plan Discharge Chief Complaint: Extremity Injury, Upper Clinical Impression: Fracture of left wrist Patient Disposition: Home, Self-Care Time of Disposition Decision: 09:59 Condition: Good Mode of Transportation: Private Vehicle Print Language: Georgian Instructions: Wrist Fracture in Adults (ED) Additional Instructions: Follow-up with Dr. Wisdom Referrals: Camelia Najera MD [Primary Care Provider] - 1 week
== END 2024-07-16 10:22 | disposition home or self-care (01) ==
PROVIDERS: Emergency Provider Emergency Medicine; PCP Family Medicine
DX: S52.502A Unspecified fracture of the lower end of left radius, initial encounter for closed fracture (principal); W00.0XXA Fall on same level due to ice and snow, initial encounter
CPT/HCPCS: 73110; 99283

== ENCOUNTER 2024-07-22 08:56 | Outpatient (OUT) | payer MEDICARE, SELFPAY ==
--- NOTE | 2024-07-22 09:04 | ECG_ITS ---
The [facility] Test Date: 2024-07-22 Pat Name: BARBARA WILLIAM Department: Room: - Gender: Female Education Trainer: : 1945 Requested By: Jonny Cantrell Order Number: [id number] Reading MD: NAS VILLANUEVA Measurements Intervals [place] Rate: 84 P: 61 KS: 142 QRS: 16 QRSD: 92 T: 46 QT: 349 QTc: 413 Interpretive Statements SINUS RHYTHM No previous ECG available for comparison Electronically Signed On 07-22-2024 18:28:29 EST by NAS VILLANUEVA
[2024-07-22 09:58] LABS: Basophils Percent Auto 0.6 % (0.2-2.0); Eosinophils Absolute Auto 0.3 10^3/uL (0.0-0.7); Eosinophils Percent Auto 5.9 % (0.9-7.0); Hematocrit 39.7 % (36.0-48.0); Hemoglobin 13.1 g/dL (12.0-16.0); Immature Granulocytes Abs Auto 0.01 10^3/uL (0.00-0.03); Immature Granulocytes Pct Auto 0.2 % (0.0-0.5); Lymphocytes Absolute Auto 1.1 10^3/uL (1.2-3.8); Lymphocytes Percent Auto 21.5 % (20.5-60.0); Mean Corpuscular Hemoglobin 31.6 pg (26.7-34.0); Mean Corpuscular Volume 95.9 fL (81.0-99.0); Mean Platelet Volume 8.5 fL (9.5-13.5); Monocytes Absolute Auto 0.3 10^3/uL (0.3-0.8); Monocytes Percent Auto 6.1 % (1.7-12.0); Neutrophils Absolute Auto 3.2 10^3/uL (1.4-6.5); Neutrophils Percent Auto 65.7 % (43.0-75.0); Platelet Count 245 10^3/uL (150-450); Red Blood Count 4.14 10^6/uL (4.20-5.40); White Blood Count 4.9 10^3/uL (4.0-11.0)
[2024-07-22 10:03] LABS: Anion Gap 13.1; BUN Creatinine Ratio 15.5; Carbon Dioxide 29.6 mmol/L (21.0-32.0); Chloride 103 mmol/L (98-107); Estimated GFR (African America >60 (>=60 mL/min/1.73m^2); Estimated GFR (Non-African Ame 52 (>=60 mL/min/1.73m^2); Glucose 137 mg/dL (74-106); Potassium 3.7 mmol/L (3.5-5.1); Sodium 142 mmol/L (136-145)
== END 2024-07-22 08:57 | disposition home or self-care (01) ==
LOC: PST 08:57
PROVIDERS: PCP Family Medicine; Visit Provider Orthopaedic Surgery
DX: Z01.810 Encounter for preprocedural cardiovascular examination (principal); Z01.812 Encounter for preprocedural laboratory examination; S59.292A Other physeal fracture of lower end of radius, left arm, initial encounter for closed fracture
CPT/HCPCS: 80048; 85025; 93005

== ENCOUNTER 2024-07-27 12:14 | Day surgery (SDC) | payer MEDICARE, SELFPAY ==
[2024-07-22 09:39] VITALS: BP 157/86; PULSE 92; TEMP 36.2; O2SAT 96; BMI 29.5
[2024-07-27] VITALS (10 sets, daily range): BP systolic 149–185; BP diastolic 72–101; PULSE 81–94; TEMP 36–36.3; O2SAT 92–100; BMI 29.1
--- OUTSIDE RECORDS SUMMARY | 2024-07-27 12:26 | XMS_ITS | CCD ---
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 Immunization Date Immunization Notes Care Provider Fa cility 05-22-2024 influenza, high dose seasonal, preservative-free [facility] 05-22-2024 influenza virus vaccine, unspecified formulation Hugogonzalez DO Work Phone: [facility] 03-18-2023 influenza virus vaccine, unspecified formulation [facility] 03-18-2023 influenza, high dose seasonal, preservative-free Camelia Crooks Other [facility] Other 03-25-2022 COVID-19 Pfizer (Pediatric) Camelia Crooks Other [facility] 03-12-2022 influenza virus vaccine, split virus (incl. purified surface antigen) Camelia Crooks Other [facility] Other 03-12-2022 influenza virus vaccine, unspecified formulation [facility] 01-28-2020 influenza virus vaccine, split virus (incl. purified surface antigen) Camelia Crooks Other [facility] Other 01-28-2020 influenza virus vaccine, unspecified formulation [facility] 02-18-2018 influenza virus vaccine, split virus (incl. purified surface antigen) Camelia Crooks Other [facility] Other 02-18-2018 influenza virus vaccine, unspecified formulation [facility] 02-18-2018 pneumococcal conjuga te vaccine, 13 valent Cameliaroberto Crooks Other [facility] 02-18-2018 pneumococcal Conjuga te, unspecified formulation; Translations: [Need for prophylactic vaccination against Streptococcus pneumoniae (pneumococcus)] Camelia Crooks Other [facility] Other 03-17-2013 pneumococcal polysaccharide vaccine, 23 valent Camelia Crooks Other [facility] 03-17-2013 tetanus and diphther ia toxoids, adsorbed, preservative free, for adult use (5 Lf of tetanus toxoid and 2 Lf of diphtheria toxoid) Camelia Crooks Other [facility] Payers Date Payer Category Payer Medicaid AETNA MEDICARE A DVANTAGE [id number] 2023 Medicare AETNA MEDICARE A DVANTAGE AETNA MEDICARE REPLACEMENT [id number] 2023-Present [address] [place] [address] [id number] 1959 Medicare [id number] 1945 Unknown [id number] 1945 Unknown [id number] 2.16.840.1.420162.3.579.2.593 1945 Unknown [id number] 2.16.840.1.045126.3.579.2.593 1945 Unknown [id number] 2.16.840.1.578051.3.579.2.1259 1945 Unknown [id number] 2.16.840.1.147727.3.579.2.1259 1946 Unknown [id number] 2.16.840.1.767792.3.579.2.1259 1946 Unknown [id number] 2.16.840.1.826231.3.579.2.1259 1946 Unknown [id number] 2.16.840.1.493385.3.579.2.1259 1946 Unknown [id number] 2.16.840.1.006114.3.579.2.1259 1946 Unknown [id number] 2.16.840.1.568776.3.579.2.1259 1946 Unknown [id number] 2.16.840.1.305669.3.579.2.1259 1946 Unknown [id number] 2.16.840.1.608622.3.579.2.1259 1945 Unknown [id number] 2.16.840.1.682389.3.579.2.1259 Medicare Medicare [id number] Medicare Medicare [id number] Self-pay Self Pay [id number] Social History Date Type Detail Facility Unknown if ever smoked [employer] Other Start: 06-24-2023 End: 06-10-2024 Sex Assigned At [facility] Start: 08-31-2023 End: 08-31-2023 Tobacco smoking status NHIS Never smoked tobacco (finding) [facility] Start: 1945 Sex Assigned At Female [facility] Start: 12-10-2022 Tobacco use and exposure [...] [facility] Start: 07-06-2024 Sex Female (finding) [facility] Clinical Notes 03-18-2023 to 06-10-2024 Jr. [...] FOR VISCO) XRAYS, STANDING AP 03/06/24 IN [facility] NO MRI NO MDP / PREDNISONE S/P [...] requiring urgent evaluation. documented in this encounter [facility] 04-28-2024 Evaluation note Diagnosis Onset Date Resolution Bronchitis acute April 28, 2024 12:55pm Other chronic pain acute Decemb er 2023 9:28am Primary osteoarthritis of right knee acute May 11 9:28am [facility] Work Phone: [phone]) 725-908110-22-2024 NoteRight Eye Quality was good. Scan locations included subfoveal. Progression has been stable. Findings include abnormal foveal contour, pigment epithelial detachment. Left Eye Quality was good. Scan locations included subfoveal. Progression has been stable. Findings include normal foveal contour, pigment epithelial detachment.[facility] [id number] History of Present illness Narrative* Barb Velazquez [...] laser capsulotomy, they are to notify their director dermatology promptly if they have a significant change [...] lid scrubs were recommended. documented in this encounterN[facility] [id number] History of Present illness Narrative* Jr. Tamela [...] TKA. Tamela Wisdom D.O. documented in this encounterN[facility] [id number] Evaluation note* Encounter Date Diagnosis Assessment Notes [...] mammogram for breast cancer (ICD-10 - Z12.31) [facility] Other Evaluation [facility]No [facility] Other Evaluation noteNo assessment information available [facility] Work Phone: Evaluation note* Diagnosis Acute pain of left knee- Primary History of total knee arthroplasty, left Primary osteoarthritis of right knee documented [facility] this encounter [facility] Diagnosis Onset Date Resolution Status Other chronic pain acute Primary osteoarthritis of right knee acute [facility] Work Phone: Evaluation note* Diagnosis Onset Date Resolution Status Other chronic pain acute Primary osteoarthritis of right knee acute Essential (primary) hypertension acute Screening mammogram for breast cancer acute [facility] Work Phone: Evaluation note* Diagnosis Intermediate stage [...] acute Primary osteoarthritis of right knee acute [facility] Work Phone: Evaluation note* Diagnosis Primary osteoarthritis [...] : Active,, Medical History Problem Title : [facility] Annual Wellness Exam, Problem Description : Medicare Annual Wellness Exam, Problem Comment : [id number], Problem Status : Active,, Medical History Problem Title : [facility] Part B,CMOD Checklist #1, Problem Description : [...] Problem Surgical History 2: Status : Active, [employer] Other Reason for referral (narrative)* Consultation (Routine) - Authorized Specialty Diagnoses / Procedures Referred By Contac t Referred To Contact Pain Medicine Diagnoses Primary osteoarthritis of right knee Procedures [facility] 60 MINUTES Jr. Tamela Wisdom DO [address] [facility] [address] [place] [address] Regino Quick MD [address] [address] Referral ID Status Reason Start Date Expiration Date Visits Requested Visits Authorized [id number] Authorized Consult and Treat 03/06/2024 09/02/2024 1 [...] Cough Chief Complaint REFF BY [facility] Reason for Visit Other chronic pain Primary osteoarthritis of right knee Chief Complaint REFF BY DR. TAMELA WELLS MEDICARE WELLNESS Reason for Visit Other chronic pain Primary osteoarthritis of right knee Essential (primary) hypertension Screening mammogram for breast cancer Chief Complaint REFF BY DR. TAMELA Disla [facility] MEDIC[facility] WELLNESS STEROID INJ TO RIGHT KNEE [...] section and content) DATE CREATED AUTHOR 06/26/2021 [facility] DATE CREATED AUTHOR AUTHOR'S ORGANIZ ATION 11/25/2021 [facility] DATE CREATED AUTHOR AUTHOR'S ORGANIZ ATION 03/24/2022 [facility] DATE CREATED AUTHOR AUTHOR'S ORGANIZ ATION 06/15/2024 [facility] dical Specialists EPIC REASON FOR VISIT [...] August 31, 2023 End: August 31, 2023 Grip Assembler Relationship Specialty Start Date End Date Camelia Crooks MD [address] [place] [address] PCP - General Family Medicine 06/06/23 Grip Assembler Relationship Specialty Start Date End Date Camelia Crooks MD [address] [place] [address] PCP - General Family Medicine 06/06/23 Team [...] March 19, 2024 End: March 19, 2024 Grip Assembler Relationship Specialty Start Date End Date Camelia Crooks MD [address] [place] [address] PCP - General Family Medicine 06/06/23 Grip Assembler Relationship Specialty Start Date End Date Camelia Crooks MD [address] [place] [address] PCP - General Family Medicine 06/06/23 Team [...] April 02, 2024 End: April 02, 2024 Grip Assembler Relationship Specialty Start Date End Date Camelia Crooks MD [address] [place] [address] PCP - [facility] Medicine 06/06/23 Grip Assembler Relationship Specialty Start Date End Date Camelia Crooks MD [address] [place] [address] PCP - [facility] Medicine 06/06/23 Team Status: Inactive Member Role Status Dates Camelia Crooks MD Primary Care Provider Active Start: April 28, 2024 End: April 28, 2024 Archana Gonzalez APRN [employer]C Attending Provider Active Start: April End: April [...] BE BASED ON THE PRIMARY CLINICAL RECORDS. [facility] [employer] [facility]. provides no warranty or guarantee of the accuracy or completeness of information in this document.
[2024-07-27] MEDS: LACTATED RINGER'S SOLUTION 1,000 ML 50 ML IV (12:42)
--- NOTE | 2024-07-27 13:19 | PC.NURSE ---
(1256) Final timeout completed. 1258- O2 applied at 2l/min via nc. Patient placed on monitor. Patients HOB elevated. Left arm positioned per Dr. Garcia. Left arm landmarked per US per Dr. Garcia. 1300- Patient medicated with Versed 1mg IV as ordered per Dr. Garcia. 1302- Left axillary block injected. 1307- Left axillary block completed. Patient tolerated it well. See posted vital signs.
[2024-07-27] MEDS: CEFAZOLIN SODIUM 2 GM/50 ML D5W PREMIX IV (13:41)
--- NOTE | 2024-07-27 13:46 | P.ORPRC_ITS ---
Procedure Note Date of procedure: 07/27/24 Pre-op diagnosis: Left distal radius fracture, greater than 3 part intra- articular Post-op diagnosis: same as pre-op Procedure: Procedure: Open reduction internal fixation left distal radius fracture Surgeon: Ceasar Cantrell MD Anesthesia: General with regional block Estimated blood loss: Minimal Specimens: None Complications: None Condition: Stable Consent: The risks, benefits, potential complications and outcomes of the proposed treatment(s) were discussed at length with the patient and family members present. They understood and have had all of their questions answered to their satisfaction and have elected to proceed. Findings: Reduced distal radius fracture with appropriate implant placement and lengths Detailed Description of Procedure: After informed consent was obtained the patient brought to the operating room where general anesthetic was administered. Preoperatively regional block was placed. A well-padded proximal arm tourniquet was placed on the right arm was prepped and draped in usual sterile fashion. The arm was elevated, exsanguinated, and the tourniquet was inflated to 200 mmHg. A 6 cm incision made overlying the flexor carpi radialis tendon overlying the distal radius. Blunt dissection was carried down through soft tissue. The flexor carpi radialis tendon was retracted ulnarly along with the flexor pollicis longus muscle and tendon. Pronator quadratus was incised in an L- shaped fashion off of the bone. Distal radius fracture was identified at this point and found to be intra-articular and comminuted. Using a combination of traction and manipulation and reduction was performed and appropriate reduction was confirmed under x-ray. A Synthes by column distal radius plate was then placed and provisionally held into place with K wires. This was adjusted until the appropriate position was achieved under multiple fluoroscopy views. The plate was then first fixed with a 2.7 bicortical nonlocking screw in the oblong hole in the shaft. Holding the distal fragments reduced a total of 6 unicortical 2.4 mm locking screws were placed at the distal fragments followed by an additional 2 screws placed in the shaft in a bicortical locking fashion. Final x-rays in multiple planes revealed a reduced distal radius fracture with appropriate implant placement and lengths. Wound was irrigated. Pronator quadratus was repaired with an 0 Vicryl suture. Skin was closed with observable suture in layers. Well-padded dressing was placed followed by a fiberglass volar splint. Turning was deflated. Patient was awakened and brought to the recovery room in stable condition. There are no intraoperative or immediate postoperative complications. Anesthesia: regional and General-LMA Surgeon: Jonny Cantrell Estimated blood loss (mL): 5 Pathology: none sent Condition: stable Disposition: PACU
--- NOTE | 2024-07-27 16:28 | PC.NURSE ---
Educated patient regarding nerve block and not having feeling in arm. Reviewed pain medicine ordered with the patient, as well as the alternative if the narcotic med was not required. Stated to always elevate arm to decrease pain and swelling as well as use ice to back of wrist at intervals to assist with this as well. Patient verbalized understanding of all discharge teaching and what was reviewed with her.
== END 2024-07-27 16:20 | disposition home or self-care (01) ==
PROVIDERS: PCP Family Medicine; Visit Provider Orthopaedic Surgery
PROC: (CPT 25609; principal; 2024-07-27 13:15)
DX: S52.572A Other intraarticular fracture of lower end of left radius, initial encounter for closed fracture (principal); W00.0XXA Fall on same level due to ice and snow, initial encounter; Z90.49 Acquired absence of other specified parts of digestive tract
CPT/HCPCS: 25609; 36415; 64417; 76000; C1713; J0690; J1100; J2250; J2371; J2405; J2704; J2795

== ENCOUNTER 2024-08-10 09:30 | Outpatient (OUT) | payer MEDICARE, SELFPAY ==
--- NOTE | 2024-08-10 | XR_ITS ---
The [address] [address] Patient Name: BARBARA WILLIAM MRN: [id number] date: 1945 Sex: F Assigned Patient Location: Current Patient Location: Accession/Order Number: [id number] Exam Date: 08/10/2024 14:05 Report Date: 08/10/2024 14:09 At the request of: MICHAEL CAMPBELL DPKishore Procedure: XR wrist LT min 3V LEFT WRIST - 3 views COMPARISON: 07/16/2024 and 07/27/2024 (intraoperative) CLINICAL DATA: Follow-up distal radius fracture. Left wrist pain. AP, lateral and oblique views were obtained. There is osteopenia. There is a fracture at the distal radius status post internal fixation with a volar plate and screws. There is improvement of alignment from the preoperative exam, particularly on the lateral view. No additional acute fracture or dislocation is identified. There is degenerative change involving the lateral intercarpal and first carpal metacarpal joints. There is still mild soft tissue swelling. XR/XR wrist LT min 3V IMPRESSION: DISTAL RADIUS FRACTURE STATUS POST INTERNAL FIXATION WITH IMPROVED ALIGNMENT FROM THE PREOPERATIVE EXAM. Impression dictated by: Brissa Lerma M.D.08/10/2024 2:09 PM Dictation Location: [place] [address] Electronically authenticated by: [id number] Y Date: 08/10/2024 14:09
--- OUTSIDE RECORDS SUMMARY | 2024-08-10 09:54 | XMS_ITS | CCD ---
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 virus vaccine, unspecified formulation Hugogonzalez DO Work Phone: [facility] 03-18-2023 influenza virus vaccine, unspecified formulation [facility] 03-18-2023 influenza, high dose seasonal, preservative-free Camelia Crooks Other [facility] Other 03-25-2022 COVID-19 Pfizer (Pediatric) Camelia Crooks Other [facility] 03-12-2022 influenza virus vaccine, split virus (incl. purified surface antigen) Camelia Crooks Other [facility] Other 03-12-2022 influenza virus vaccine, unspecified formulation [facility] 01-28-2020 influenza virus vaccine, split virus (incl. purified surface antigen) Camelia Crooks Other [facility] Other 01-28-2020 influenza virus vaccine, unspecified formulation [facility] 02-18-2018 influenza virus vaccine, split virus (incl. purified surface antigen) Camelia Crooks Other [facility] Other 02-18-2018 influenza virus vaccine, unspecified formulation [facility] 02-18-2018 pneumococcal conjuga te vaccine, 13 valent Cameliaroberto Crooks Other [facility] 02-18-2018 pneumococcal Conjuga te, unspecified formulation; Translations: [Need for prophylactic vaccination against Streptococcus pneumoniae (pneumococcus)] Camelia Crooks Other [facility] Other 03-17-2013 pneumococcal polysaccharide vaccine, 23 valent Camelia Crooks Other [facility] 03-17-2013 tetanus and diphther ia toxoids, adsorbed, preservative free, for adult use (5 Lf of tetanus toxoid and 2 Lf of diphtheria toxoid) Camelia Crooks Other [facility] Payers Date Payer Category Payer Medicaid [employer] MEDICARE A DVANTAGE [id number] 2023 Medicare AETNA MEDICARE A DVANTAGE AETNA MEDICARE REPLACEMENT [id number] 2023-Present [address] [place] [address] [id number] 1959 Medicare [id number] 1945 Unknown [id number] [id number] 1945 Unknown [id number] 2.16.840.1.443469.3.579.2.593 1945 Unknown [id number] 2.16.840.1.146022.3.579.2.593 1945 Unknown [id number] 2.16.840.1.199284.3.579.2.1259 1945 Unknown [id number] 2.16.840.1.917593.3.579.2.1259 1945 Unknown [id number] 2.16.840.1.715347.3.579.2.1259 1945 Unknown [id number] 2.16.840.1.312053.3.579.2.1259 1945 Unknown [id number] 2.16.840.1.482429.3.579.2.1259 1945 Unknown [id number] 2.16.840.1.782017.3.579.2.1259 1945 Unknown [id number] 2.16.840.1.473927.3.579.2.1259 1946 Unknown [id number] 2.16.840.1.413392.3.579.2.1259 1945 Unknown [id number] 2.16.840.1.525956.3.579.2.1259 1945 Unknown [id number] 2.16.840.1.685023.3.579.2.1259 Medicare Medicare [id number] Medicare Medicare [id number] Self-pay Self Pay [id number] Social History Date Type Detail Facility Unknown if ever smoked [facility] Other Start: 06-24-2023 End: 06-10-2024 Sex Assigned At [facility] Start: 08-31-2023 End: 08-31-2023 Tobacco smoking status NHIS Never smoked tobacco (finding) [facility] Start: 1945 Sex Assigned At Female F [facility] Start: 12-10-2022 Tobacco use and exposure Smokeless [...] [facility] Start: 07-06-2024 Sex Female (finding) [facility] Clinical Notes 03-18-2023 to 06-10-2024 Jr. [...] FOR VISCO) XRAYS, STANDING AP 03/06/24 IN [facility] NO MRI NO MDP / PREDNISONE [...] requiring urgent evaluation. documented in this encounter [facility] 04-28-2024 Evaluation note Diagnosis Onset Date Resolution Bronchitis acute April 28, 2024 12:55pm Other chronic pain acute Decemb er 2023 9:28am Primary osteoarthritis of right knee acute May 11 9:28am [facility] Work Phone: 1(150) 583-884610-22-2024 NoteRight Eye Quality was good. Scan locations included subfoveal. Progression has been stable. Findings include abnormal foveal contour, pigment epithelial detachment. Left Eye Quality was good. Scan locations included subfoveal. Progression has been stable. 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 documented in this encounterSaint Francis Medical [id number] History of Present illness Narrative* Jr. Tamela [...] TKA. Tamela Wisdom D.O. documented in this encounterSaint Francis Medical [id number] Evaluation note* Encounter Date Diagnosis Assessment Notes [...] mammogram for breast cancer (ICD-10 - Z12.31) [facility] Other Evaluation noteNo [facility] Other Evaluation noteNo assessment information available [facility] Work Phone: Evaluation note* Diagnosis Acute pain of left knee- Primary History of total knee arthroplasty, left Primary osteoarthritis of right knee documented in this encounter [facility]* Diagnosis Onset Date Resolution Status Other chronic pain acute Primary osteoarthritis of right knee acute [facility] Work Phone: Evaluation note* Diagnosis Onset Date Resolution Status Other chronic pain acute Primary osteoarthritis of right knee acute Essential (primary) hypertension acute Screening mammogram for breast cancer acute [facility] Work Phone: Evaluation note* Diagnosis Intermediate [...] acute Primary osteoarthritis of right knee acute [facility] Work Phone: Evaluation note* Diagnosis Primary [...] : Active,, Medical History Problem Title : [facility] Annual Wellness Exam, Problem Description : Medicare Annual Wellness Exam, Problem Comment : G0439, Problem Status : Active,, Medical History Problem Title : [facility] Part B,CMOD Checklist #1, Problem Description [...] Problem Surgical History 2: Status : Active, [facility] Other Reason for referral (narrative)* Consultation (Routine) - Authorized Specialty Diagnoses / Procedures Referred By Contac t Referred To Contact Pain Medicine Diagnoses Primary osteoarthritis of right knee Procedures [place] OFFICE/OUTPATIENT [facility] 60 MINUTES Jr. Tamela Wisdom DO [address] [facility] [address] [place] [address] Regino Quick MD [address] [address] Referral ID Status Reason Start Date Expiration Date Visits Requested Visits Authorized [id number] Authorized Consult and Treat 03/06/2024 09/02/2024 1 [...] Cough Chief Complaint RE[facility] Reason for Visit Other chronic pain Primary osteoarthritis of right knee Chief Complaint REFF BY DR. TAMELA WELLS MEDICARE WELLNESS Reason for Visit Other chronic pain Primary osteoarthritis of right knee Essential (primary) hypertension Screening mammogram for breast cancer Chief Complaint REFF BY DR. TAMELA [facility] WELLNESS STEROID INJ TO RIGHT [...] section and content) DATE CREATED AUTHOR 06/26/2021 [facility] DATE CREATED AUTHOR AUTHOR'S ORGANIZ ATION 11/25/2021 [facility] DATE CREATED AUTHOR AUTHOR'S ORGANIZ ATION 03/24/2022 [facility] DATE CREATED AUTHOR AUTHOR'S ORGANIZ ATION 06/15/2024 [facility] EPIC REASON FOR VISIT (unrecogniz [...] August 31, 2023 End: August 31, 2023 Mail Inserter Relationship Specialty Start Date End Date Camelia Crooks MD [address] [place] [address] PCP - General Family Medicine 06/06/23 Mail Inserter Relationship Specialty Start Date End Date Camelia Crooks MD [address] [place] [address] PCP - General Family Medicine 06/06/23 Team [...] March 19, 2024 End: March 19, 2024 Mail Inserter Relationship Specialty Start Date End Date Camelia Crooks MD [address] [place] [address] PCP - General Family Medicine 06/06/23 Mail Inserter Relationship Specialty Start Date End Date Camelia Crooks MD [address] [place] [address] PCP - General Family Medicine 06/06/23 Team [...] April 02, 2024 End: April 02, 2024 Mail Inserter Relationship Specialty Start Date End Date Camelia Crooks MD [address] [place] [address] PCP - [facility] Medicine 06/06/23 Mail Inserter Relationship Specialty Start Date End Date Camelia Crooks MD [address] [place] [address] PCP - [facility] Medicine 06/06/23 Team Status: Inactive Member Role Status Dates Camelia Crooks MD Primary Care Provider Active Start: April 28, 2024 End: April 28, 2024 Archana Gonzalez APRN [employer] Attending Provider Active Start: April End: April [...] BE BASED ON THE PRIMARY CLINICAL RECORDS. [facility] [employer] [facility]. provides no warranty or guarantee of the accuracy or completeness of information in this document.
== END 2024-08-10 09:31 | disposition home or self-care (01) ==
PROVIDERS: PCP Family Medicine; Visit Provider Orthopaedic Surgery
DX: S52.572A Other intraarticular fracture of lower end of left radius, initial encounter for closed fracture (principal)
CPT/HCPCS: 73110

== ENCOUNTER 2024-09-07 11:04 | Outpatient (OUT) | payer MEDICARE, SELFPAY ==
--- NOTE | 2024-09-07 | XR_ITS ---
[facility] [place] [id number] Patient Name: BARBARA WILLIAM MRN: [id number] date: 1945 Sex: F Assigned Patient Location: Current Patient Location: Accession/Order Number: [id number] Exam Date: 09/07/2024 13:21 Report Date: 09/07/2024 13:22 At the request of: ALVINO WARE MD Procedure: XR wrist LT min 3V 3 views left wrist plain film COMPARISON: 08/10/2024 HISTORY: Follow-up left wrist ORIF ACUTE FINDINGS: Continued interval healing with stable alignment DEGENERATIVE CHANGE: Unremarkable SOFT TISSUE FINDINGS: Unremarkable JOINT EFFUSION: None POSTOP CHANGES: No hardware complication. BONE MINERALIZATION: Adequate XR/XR wrist LT min 3V IMPRESSION: Interval healing with stable alignment and hardware. Impression dictated by: Tylor Hough M.D.09/07/2024 1:22 PM Dictation Location: [place] [address] Electronically authenticated by: [id number] Y Date: 09/07/2024 13:22
== END 2024-09-07 11:05 | disposition home or self-care (01) ==
LOC: EC 11:04
PROVIDERS: PCP Family Medicine; Visit Provider Orthopaedic Surgery
DX: S52.572D Other intraarticular fracture of lower end of left radius, subsequent encounter for closed fracture with routine healing (principal)
CPT/HCPCS: 73110

== ENCOUNTER 2025-03-31 08:51 | Outpatient (OUT) | payer MEDICARE, SELFPAY ==
--- OUTSIDE RECORDS SUMMARY | 2024-07-27 09:30 | XMS_ITS ---
Author Organization [facility] Address [address] [place] [address] Care Team Providers Care Wildlife Ecologist Name Role Phone Jonny Cantrell Unavailable [phone] REASON FOR VISIT OPEN REDUCTION INTERNAL FIXATION LEFT DISTAL RADIUS FRACTURE Encounters Encounter Location Date Provider Diagnosis [facility] [address] [place] [address] 07/27/2024 Jonny Cantrell Other intraarticular fracture of lower end of left radius, initial encounter for closed fracture S52.572A Assessments Encounter Date Diagnosis (ICD Code) Assessment Notes Treatment Notes Treatment Clinical Notes Section Notes 07/27/2024 Other intraarticular fracture of lower end of left radius, initial encounter for closed fracture (ICD-10 - S52.572A) Plan Of Treatment No Information Progress Notes * BARBARA WILLIAM LDOB:[birth year] (79 yo F)Acc No.[id number]:07/27/2024 Patient:?STEWART BARBARA Mitchell :?MARU CaballeroOB:1945???Age:79 Y ???Sex:FemaleDate:07/27/2024Phone:[phone]:[address] [place] [id number] * Images: * Electronic signature of Jonny Cantrell MD on 03/31/2025 at 08:54 AM EDTSign off status: Pending * Provider: Naif Cantrell MD Date: 0 07/27/2024 Generated for Printing/Faxing/eTransmitting on:?03/31/2025 08:54 AM EDT
--- OUTSIDE RECORDS SUMMARY | 2025-03-29 07:11 | XMS_ITS | Continuity of Care Document ---
Author Organization [facility] Address [address] [place] [address] Phone Care Team Providers Care I&C Technician Name Role Phone Camelia Najera MD Primary Care Provider Erik Bagley DO Attending Provider Care Teams Patient Care Team Team Status: Active Member Role/Relationship Status Dates Camelia Najera MD Primary Care Provider Active Patient Care Team Team Status: Inactive Member Role/Relationship Status Dates Camelia Najera MD Primary Care Provider Active Start: March 29, 2025 End: March 29enjakelly Bagley DOAttending ProviderActiveStart: March 29, 2025 End: March 29, 2025 Chief Complaint and Reason for Visit Chief Complaint Admit Date flu shot March 29, 2025 1 0:55am Allergies, Adverse Reactions, Alerts Allergen Type Severity Reaction Last Updated Verified Status Comments meperidine Allergy Unknown hot flashes, vomiting July 06, 2024 10:03am Yes Active Onset Date: 03/17/2013 Social History Smoking Status Status Start Date End Date Date of Observa tion Never smoked tobacco (finding) March 29, 2025 11:09am Observation Status Observation Response Date of Response Legal Sex Female (finding) Sex Assigned At BirthFemaleFebruary 1945 Problems Active Problems Problem Diagnosis/Recorded Date Onset Date Stat Medicare annual wellness vis it, subsequent March 19, 2024 10:22am Unknown Active Primary osteoarthritis of right knee March 13 9:21am Unknown Active Screening mammogram for breast cancer March 19 10:07am Unknown Active Overactive bladder March 19, 2024 10:22am Unknown Active Other chronic pain March 13, 2024 9:22am Unknown Active Essential (primary) hypertension August 31, 2023 11:4 8am Unknown Active Left-sided chest wall pain July 06, 2024 1:52pm U nknown Active Bronchitis April 28, 2024 2:24pm Unknown A ctive Medications Medication Status Dose Units Route Directions Qty Days Refills S tart Date Stop Date End Date Reason(s) Instructions Adherence Hydrochlorothiazide 25 mg tablet Discontinued 0 .ROUTE.IUUIUMC745Zlxwm 2023 2:53pmOctober 2023 8:20amTAKE 1 TABLET BY MOUTH EVERY DAYHydrochlorothiazide 25 mg tabletDiscontinued0.ROUTE.DQGDGER943 March 16, 2024 8:20amApril 2024 8:29amTAKE 1 TABLET BY MOUTH EVERY DAY Hydrochlorothiazide 25 mg tabletDiscontinued0.ROUTE.BQGPEDQ824Lyljq 2024 8:29amOctober 2024 8:33amTAKE 1 TABLET BY MOUTH EVERY DAY Hydrochlorothiazide 25 mg tabletActive0.ROUTE.LQHUNGC002Pzczttj2024 8:33am TAKE 1 TABLET BY MOUTH EVERY DAYUnknownHydrochlorothiazide 25 mg tablet DiscontinuedMGPOMarch 2023 12:00amApril 2023 2:53pmMirabegron (Myrbetriq) 50 mg tablet extended release 24 hrDiscontinuedMGPOCleveland Clinic [facility] 2023 12:00amOctober 2023 10:11amAzithromycin (Zithromax Z-Carrington) 250 mg tablet Snskkqphysxf958OYGEOrplo452Smudy 2023 12:00amOctober 2023 9:07amtake 2 tabs today and 1 daily for the next 4 daysMethylprednisolone (Medrol (Carrington)) 4 mg tablets,dose ukgaQtlvoxwdltiu0VByyb package zjfiftvyks22Blopp 2023 12:00amOctober 2023 9:07amPO PER PKG DIR for 6 daysAlbuterol Sulfate 90 mcg/actuation HFA aerosol pcwjmibVovelompwgsw0RMGYEPETJMFOWPSzsu times daily as needed for shortness of breath or wheezing8.50[facility] 2023 12:00amOctober 2023 9:07amAzithromycin 250 mg dmlvubIfqpigstpchs8XYarlxc302Hagknwnq 2023 1:00amFebruary 2024 11:33amBronchitis Bronchitis, not specified as acute or chronicTake 2 on day 1 and then take 1 for the next 4 days (days 2-5)Benzonatate 200 mg ntwxusxHoatiljgecmt492TWULYmmsy times daily as needed for ayijc20754Tydjehop 2023 1:00amFebruary 2024 11:33amBronchitis Bronchitis, not specified as acute or chronicMirabegron (Myrbetriq) 50 mg tablet extended release 24 jhBfrhjl13OVHCByeqk305Sjaeoaf 2023 10:10amUnknown Tizanidine 2 mg asodpqEnqwqi8GKYEPcntr at bedtime as needed for muscle tybclgulcc032Rbxtivgz 2024 1:00amUnknown Immunizations Immunization Event Date Not Given Reason Dose Number Ad Operations Associate Lot Number Reason(s) Given Vaccine Information Statement (VIS) Detail Administration Location [facility], Pediatric Age 5-11 March Fluzone TIV High-Dose 65YR+May 22, [id number] [facility] influenza, unspecified formulationSeptember 2017influenza, unspecified formulationAugust 2019influenza, unspecified formulationOctober 2021 influenza, unspecified formulationOctober neumococcal Conjugate Vaccine, 13 valentSeptember 2017Pneumococcal Polysacc. Vaccine, 23 valent March 17, 2013Tetanus, Diphtheria adult, 5 Lf pres free absOctober 2012 Advance Directives Advance Directive Response Recorded Date/ Time Advance Directives No March 29, 2025 11:09am Insurance Providers Guarantor Johanny Boss Address [address] [facility] [address]Ldymlvl Info.Home Phone: Payer Group Member ID Coverage Type Subscriber Relationship to Subscriber Effective Date Expiration Date Medicare [id number] L Johnson Id: [id number] [address] [facility] [address] Home Phone: [facility] [id number] Stephen Boss Id: [id number] [address] [place] [address] Home Phone: Self Encounters Encounter Location(s) Arrival/Admit Date Discharge/Departure Date Discharge/Departure Disposition Provider(s) Departed Physician/ Provider Office Visit -[facility] March 29, 2025 10:55am March 29, 2025 11:10am Discharged to home care or self care (routine discharge) Erik Bagley , DO Plan of Treatment Future Tests Future scheduled test information is unavailable Pending Tests Pending diagnostic test information is unavailable Future Visits Future appointment information is unavailable Future Procedures Procedure Name Ordered Date Scheduled Date Flu Vaccine High Dose PF 65Y+ IM - Fluzone Octob er 2024 10:55am Future Medications Future medication information is unavailable Patient Instructions Patient instructions are unavailable
--- NOTE | 2025-03-31 08:54 | MM_ITS ---
Patient Name: BARBARA WILLIAM MR#: [id number] : 1945 Exam Date: 03/31/2025 Ordering Doctor: DR ERIC CROOKS M.D. RADIOLOGY REPORT PROCEDURE: MM TOMOSYNTHESIS SCREENING BI COMPARISON: MM TOMOSYNTHESIS SCREENING BI, 03/26/2024. MM TOMOSYNTHESIS SCREENING BI, 03/22/2023. MG MAMM SCREEN 3D PATRICIA CAD, 02/22/2022. MG MAMM PATRICIA SCRN W CAD DIG, 10/13/2012. INDICATIONS: screening Calculator Name NCI Breast Cancer Risk Assessment Tool 5 Year Breast Cancer Risk 1.20% Lifetime Breast Cancer Risk 2.20% Personal Breast Cancer No Personal Ovarian Cancer No Treatments None Family Cancers Aunt-maternal with breast cancer at age ~70; Father with bone cancer at age 75. LOCATION: [facility] BREAST COMPOSITION: There are scattered areas of fibroglandular density. FINDINGS: RIGHT BREAST: No significant suspicious finding. LEFT BREAST: No significant suspicious finding. DIAGNOSTIC CATEGORY 1--NEGATIVE. RECOMMENDATIONS: ROUTINE MAMMOGRAM AND CLINICAL EVALUATION IN 12 MONTHS. Dictated by: Tylor Hough DO on 03/31/2025 at 11:36 Approved by: Tylor Hough DO on 03/31/2025 at 11:41
--- OUTSIDE RECORDS SUMMARY | 2025-03-31 08:54 | XMS_ITS | Patient Health Record ---
Author Organization [facility] Address [address] [place] [address] Care Team Providers Care Correction Warden Name Role Phone Jonny Cantrell Unavailable [phone] Allergies Allergen (clinical drug ingredient) Drug/Non Drug Allergy documented on EMR Reaction Allergy Type Onset Date Status meperidine Demerol Unknown Drug Allergy Active Results Component Value Reference Range Notes SCC- WRIST 3 VIEW LEFT 35418 Reviewed date:08/13/2024 11:03:40 AM Interpretation: Performing Lab: Notes/Report: Chem 8, Venous Reviewed date:08/20/2024 01:26:02 PM Interpretation: Performing Lab: Notes/Report: Surgery Scheduling Reviewed date:07/30/2024 12:46:29 PM Interpretation: Performing Lab: Notes/Report: Primary Insurance Company: MEDICARE [employer] [facility]: 07/[facility]/24Surgery End Time:90 MINUTESProcedure:OPEN REDUCTION INTERNAL FIXATION LEFT DISTAL RADIUS FRACTURE, 10169 vs 76738Taenexl Equipment:SYNTHES DISTAL RADIUS PLATESC-Arm:YESDiagnosis:S52.572AAdmission Type:OUTPATIENTAnesthesia Type/CPNB:GENERAL/BLOCKPost-op Appointment Date:2 W[address]SL[address] [facility], BMP, EKG Reviewed date:10/21/2024 09:42:56 AM Interpretation: Performing Lab: Notes/Report: Reason For Referral Reason GERARDO.....PELASE OBTAI N AUTHORIZATION FOR OPEN REDUCTION INTERNAL FIXATION LEFT DISTAL RADIUS FRACTURE Haroon Becker 2024 12:44:19 PM >Cpt code 45136 vs 18545 Diagnosis 1 Other closed intra-a rticular fracture of distal end of left radius, initial encounter (S52.572A) [facility] Referring Provider First Name Jonny Referring Provider Last Name Óscar Referring Provider Speciality Orthopedic Surgery Referred Organization [facility] Referred Address 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 Yes How often did you have a drink containing alcohol in the past year?Daily or almost daily (4 points)How many drinks did you have on a typical day when you were drinking in the past year?1 or 2 drinks (0 point)How often did you have six or more drinks on one occasion in the past year?Never (0 point)Points4 InterpretationPositiveTobacco Control (Standard) Question Answer Notes Tobacco use: Nonsmoker Problems Problem Type SNOMED Code ICD Code Onset Dates Problem Status W/U Status Risk Notes Problem 38101856 Other closed int ra-articular fracture of distal end of left radius, initial encounter (S52.572A) Activeconfirmed Vital Signs Height 5'6 in 08/10/2024 Enpljp463 lbs08/10/2024BMI29.05008/10/2024 Encounters Encounter Location Date Provider Diagnosis [facility] [address] [place] [address] 07/27/2024 Jonny Cantrell Other intraarticular fracture of lower end of left radius, initial encounter for closed fracture S52.572A [facility] [address] [place] [address] [address] [place] [address] 2024 Jonny Cantrell Other closed intra-articular fracture of distal end of left radius, initial encounter S52.572A [facility] [address] [place] [address] 08/10/2024 Jonny Cantrell Other closed intra-articular fracture of distal end of left radius, initial encounter S52.572A [facility] [address] [place] [address] [place] [address] 09/07/2024 Jonny Cantrell Other closed intra-articular fracture of distal end of left radius, initial encounter S52.572A [facility] [address] [place] [address] [place] [address] 10/05/2024 Jonny Cantrell Other closed intra-articular fracture of distal end of left radius, initial encounter S52.572A Assessments Encounter Date Diagnosis (ICD Code) Assessment Notes Treatment Notes Treatment Clinical Notes Section Notes 2024 Other closed intra-a rticular fracture of distal end of left radius, initial encounter (ICD-10 - S52.572A) 07/27/2024Other intraarticular fracture of lower end of left radius, initial encounter for closed fracture (ICD-10 - S52.572A)08/10/2024Other closed intra- articular fracture of distal end of left radius, initial encounter (ICD-10 - S52.572A)09/07/2024Other closed intra-articular fracture of distal end of left radius, initial encounter (ICD-10 - S52.572A)10/05/2024Other closed intra- articular fracture of distal end of left radius, initial encounter (ICD-10 - S52.572A)2024Other For her left distal radius fracture I recommended an open reduction internal fixation. I have also discussed conservative treatments. She is interested in proceeding with surgery. I have discussed risks of surgery including but not limited to risk of persistent postoperative pain. We have discussedthe recovery. We have gone through additional risks and the informed consent process which she understands and has elected to proceed with surgery. This will serve as the H & P. Import medication 08/10/2024Other Patient is doing very well. Sutures were removed today in clinic. New Steri- Strips were placed. Shehas been instructed to [facility] a [facility]. Precautions been reviewed.She will follow-up in 4 weeks to repeat x-rays and reassess her progress. We will hold off on therapy at this time given her excellent motion. Import medication 09/07/2024Other Patient is doing well after distal radius ORIF. I have reviewed precautions with her. She will avoid any heavy lifting. She will continue to work on restoring motion. She will follow-up in 4 weeks torepeat x-rays and reassess her progress. Import medication 10/05/2024Other Patient is doing well after her ORIF of her left distal radius fracture. She will continue with activities as tolerated and follow-up on an as-needed basis. Import medication Plan Of Treatment Pending Test Test Name Order Date SCC- WRIST 3 VIEW LEFT 28768 10/05/2024 SCC- WRIST 3 VIEW LEFT 12971 09/07/2024 Insurance Providers Payer Name Payer Address Payer Phone Subscriber Number Group Number Insured Name Patient Relationship to Insured Coverage Start Date Coverage End Date Medicare [address] [place] [address] [id number] MARLYS WILLIAMelf - patient is the insured Medical (General) History Medical History History ICD Code Drug Allergies Surgical History Surgery Date(Month/Year) ORIF of a left distal radius fracture Knee replacement 2020 Back 2000
--- OUTSIDE RECORDS SUMMARY | 2025-03-31 08:54 | XMS_ITS | Clinical Summary ---
Author Organization [facility] Address [address] [facility] [place] [address] Care Team Providers Care Flarer Name Role Phone Camelia Najera MD Primary Care Provider [phone] Allergies Active AllergyReactionsCriticalityNoted CnlyPfxhwcblEpmeouyvit53/09/2017 Sweats, chills, confusion Meperidine Hcl12/10/2022 Other Reaction(s): Chills / Loss of Conscienace Medications MedicationSigDispense QuantityRefillsLast FilledStart DateEnd DateStatus aspirin 81 MG EC tablet 1 tablet Orally two times dailyActive Calcium Carbonate-Vitamin D (Oyster Shell Calcium/D) 500-5 MG-MCG tablet Take 1 tablet by mouth in the morning and 1 tablet in the evening. Take with meals.Active hydroCHLOROthiazide (HYDRODiuril) 12.5 MG tablet Take 12.5 mg by mouth in the morning.Active Lutein-Zeaxanthin 25-5 MG capsule OrallyActive Myrbetriq 50 MG 24 hr tablet 1 (one) time each day at the same time.Active amoxicillin (Amoxil) 500 MG tablet Indications:History of total knee arthroplasty, left4 tabs PO once 30-60 mins before procedure with food 4 tablet 5Active Active Problems ProblemNoted DateDiagnosed DateLeft posterior capsular nkfyosdpjqthq56/23/2025 Blepharitis of upper and lower eyelids of both eyes4Pseudophakia 10/08/2023Intermediate stage nonexudative age-related macular degeneration of both eyes12/10/2022ry eyes12/10/2022 Resolved Problems ProblemNoted DateDiagnosed DateResolved DateBilateral posterior capsular bbupgcsyppgue58/22/854843/5Age-related nuclear cataract of left eye /ight posterior capsular ykbeiqgxcipga00 Encounters DateTypeDepartmentCare QxqsIjnwliyntqa02/01/2025 10:00 AM EDTOffice Visit [facility] [address] [place] [address] Jr. Avelino Wisdom, Acute pain of right knee (Primary Dx); Primary osteoarthritis of right knee03/03/2025amboo flowsheet [facility] [address] [place] [address] Jr. Avelino Wisdom, 03/03/2025Travelfrom Last 3 Months Family History Medical HistoryRelationNameCommentsCancerFatherFrankHypertensionMotherMomMacular degenerationMotherMomRelationNameStatusCommentsFatherFrankDeceasedMotherMom Social History Tobacco UseTypesPacks/DayYears UsedDateSmoking Tobacco: NeverSmokeless Tobacco: Never Tobacco Cessation:Counseling Given: Not Answered Alcohol UseStandard Drinks/WeekCommentsYes0 (1 standard drink = 0.6 oz pure alcohol)AUDIT-CAnswerDate RecordedQ1: How often do you have a drink containing alcohol?4 or more times a week06/24/2023Q2: How many drinks containing alcohol do you have on a typical day when you are drinking?1 or Q3: How often do you have six or more drinks on one occasion?Never06/24/2023Comments UnknownSex and Gender InformationValueDate RecordedSex Assigned at BirthNot on fileLegal NplOgngjj13/15/2023 7:58 PM EDTGender IdentityNot on fileSexual OrientationNot on file Last Filed Vital Signs Vital SignReadingTime TakenCommentsBlood Vtoywyrm556/64755 10:31 AM EDT Dlgdg2292 10:31 AM EDTTemperature--Respiratory Rate--Oxygen Saturation-- Inhaled Oxygen Concentration--Vdywnp61 kg (183 lb)06/06/2023 10:20 AM ESTHeight 167.6 cm (5' 6 )06/06/2023 10:20 AM ESTBody Mass Index29.54006/06/2023 10:20 AM EST Plan of Treatment DateTypeDepartmentCare Team (Latest Contact Info)Gtbbipvwbun66/07/2026 10:30 AM ESTOffice Visit [facility] [address] [place] [address] Jr. Avelino Wisdom, DO [address] [place] [address] 02/23/2026 9:45 AM EDTOffice Visit [facility] [address] [place] [address] Adolfo Velazquez, DO [address] [place] [address] Health MaintenanceDue DateLast DoneCommentsInfluenza Vaccine (#1)02/01/2025 05/22/2024, 01/27/2021, 01/27/2020, Additional history existsPneumococcal Vaccine: 65+ BuoniKlsphghbj67/18/2018, 11/09/2013 Insurance Care Teams Team MemberRelationshipSpecialtyStart DateEnd Date Camelia Najera MD [address] [place] [address] PCP - [facility]06/06/23
--- OUTSIDE RECORDS SUMMARY | 2025-03-31 08:54 | XMS_ITS | Clinical Summary ---
Author Organization [facility] tem Address [id number] [place] [address] Care Team Providers Care Machine Lacer Name Role Phone Camelia Najera MD Primary Care Provider [phone] Allergies Active AllergyReactionsCriticalityNoted WwotChwlbafjSwnasafoiq11/09/2017 Sweats, chills, confusion Medications MedicationSigDispense QuantityRefillsLast FilledStart DateEnd DateStatus aspirin 81 mg Take 81 mg by mouth daily.Active hydroCHLOROthiazide (HYDRODIURIL) 12.5 mg tablet Take 12.5 mg by mouth daily.Active calcium carbonate-vitamin D3 (CALCIUM 500 + D) 500 mg(1,250mg) -200 units per tablet Take 1 tablet by mouth 2 (two) times a day with meals.Active OMEGA-3/DHA/EPA/DPA/FISH OIL (OMEGA-3 2100 ORAL) Take by mouth.Active LUTEIN ORAL Take by mouth.Active Family History Medical HistoryRelationNameCommentsNo Known ProblemsFatherNo Known Problems MotherRelationNameStatusCommentsFatherMother Social History Tobacco UseTypesPacks/DayYears UsedDateSmoking Tobacco: NeverSmokeless Tobacco: NeverAlcohol UseStandard Drinks/WeekCommentsYes0 (1 standard drink = 0.6 oz pure alcohol)1 dailyChildcareAnswerDate EkcsimliJwjigezsaXtsniie91/12/2019Employment AnswerDate RjxeclmfBvszrplmgySjtiqer50/12/2019Purpose - LifeAnswerDate Recorded Purpose and direction in qcldVvlxbdw87/11/2021CommentsUnknownSex and Gender InformationValueDate RecordedSex Assigned at BirthNot on fileLegal Sex Jbajap7701/06/2015 12:04 PM EDTGender IdentityNot on fileSexual OrientationNot on file Last Filed Vital Signs Vital SignReadingTime TakenCommentsBlood Tygjrzuo234/8704/16/2017 4:45 PM EST Yygot933804/16/2017 4:03 PM RKQWwjusjhmezz60.3 ??C (99.1 ??F)04/16/2017 3:33 PM ESTRespiratory Dntw836606/16/2016 4:03 PM ESTOxygen Wfhlrwiqya57%04/16/2017 4:03 PM ESTInhaled Oxygen Concentration--Ffbhhn85.4 kg (175 lb)04/16/2017 12:28 PM BKLDzcekf198.6 cm (5' 6 )04/16/2017 12:28 PM ESTBody Mass Index28.25106/16/2016 12:28 PM EST Plan of Treatment Not on file Medical Devices Not on file Insurance Care Teams Team MemberRelationshipSpecialtyStart DateEnd Date Camelia Najera MD [address] [place] [address] PCP - Qiewqvi65/9/17
--- OUTSIDE RECORDS SUMMARY | 2025-03-31 08:54 | XMS_ITS | Clinical Summary ---
Author Organization [facility] Address [address] [place] [address] Phone Care Team Providers Care Founder And Chief Technical Officer Name Role Phone Unavailable Primary Care Provider Unavailabl e Social History Tobacco UseTypesPacks/DayYears UsedDateSmoking Tobacco: Never Assessed CommentsUnknownSex and Gender InformationValueDate RecordedSex Assigned at Not on fileLegal GwaYgdyow20/26/2022 1:16 AM ESTGender IdentityNot on fileSexual OrientationNot on file Plan of Treatment Not on file
--- OUTSIDE RECORDS SUMMARY | 2025-03-31 08:57 | XMS_ITS | CCD ---
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 Name Role Phone DAKSHA, DR ERIC Hamilton Admitting Unavailable CROOKS, DR ERIC Hamilton Attending Unavailable CROOKS, DR ERIC Hamilton Primary Care Unavailable WEST, DR JAVI Boudreaux Consulting Unavailable CROOKS, DR ERIC Hamilton Consulting Unavailable CROOKS, DR ERIC Hamilton Admitting Unavailable CROOKS, DR ERIC Hamilton Attending Unavailable CROOKS, DR ERIC Hamilton Primary Care Unavailable WEST, DR JAVI Boudreaux Consulting Unavailable CROOKS, DR ERIC Hamilton Consulting Unavailable CROOKS, DR ERIC Hamilton Admitting Unavailable CROOKS, DR ERIC Hamilton Attending Unavailable CROOKS, DR ERIC Hamilton Primary Care Unavailable CROOKS, DR ERIC Hamilton Consulting Unavailable Crooks, Eric Unavailable Eric Crooks MD Primary Care Provider Eric Crooks MD Primary Care Provider BARB VELAZQUEZ Attending Blossom WISDOM JR., TAMELA Gallegos Attending Juana BARB Amado Attending Unavailable JR. ARTIS, TAMELA Gallegos Attending Juana laly WISDOM JR., TAMELA Gallegos Referring Juana laly WISDOM JR., TAMELA Gallegos Attending Eric Galan MD Primary Care Provider Erik Bagley DO Attending Provider [phone] Allergies Allergy ClassificationReported Allergen(s)Allergy TypeDate of OnsetReaction(s) Facility (1 source)MeperidineDrug Sbkrabg45-30-2873Jbb [facility] Repository (18 sources)MeperidineDrug Iwupumh60-24-5113HkvgxxuJNPP Healthcare (3 sources)patient allergy list reviewed by nurse or physiciaPropensity to adverse oayspcdhg65-88-9397Tqsjqvt:eduFire Other (3 sources)Allergies ReconciledPropensity to adverse reactionsIndiana University Health Methodist HospitalOpenSpan Other (3 sources)Aleve-D Sinus & ColdDrug dodinxy12-07-5581YddnyjgQrrky Coast [facility]jee Other (15 sources)MeperidineDrug Wepulqb94-84-1665[facility] Medications Current Medications MedicationDrug Class(es)DatesSig (Normalized)Sig (Original)amoxicillin 500 mg oral tablet (7 sources)Penicillin-class AntibacterialStart: 18-06-1265fosy 4 tablets by mouth once at mealtimeamoxicillin (Amoxil) 500 MG tablet Indications: History of total knee arthroplasty, left 4 tabs PO once 30-60 mins before procedure with food 4 tablet 3 11/30/2024 Activeaspirin 81 mg delayed release oral tablet (15 sources)Platelet Aggregation Inhibitor, Nonsteroidal Anti-inflammatory Drug take 1 tablet by mouth twice dailyaspirin 81 MG EC tablet 1 tablet Orally two times daily Activecalcium carbonate 1250 mg / cholecalciferol 200 unt oral tablet (15 sources)Vitamin Dtake 1 tablet by mouth once in the morning, then take 1 tablet by mouth once at mealtimeCalcium Carbonate-Vitamin D (Oyster Shell Calcium/D) 500-5 MG-MCG tablet Take 1 tablet by mouth in the morning and 1 tablet in the evening. Take with meals. ActivehydroCHLOROthiazide 25 mg oral tablet (20 sources)Thiazide DiureticStart: 09-10-2023 End: 18-33-2850zfkk 1 tablet by mouth once dailyStart: 08-31-2023 End: 18-76-1867Djrjcbythccvxzfuaqz 25 mg tablet Discontinued MG PO August 31, 2023 12:00am September 10, 2023 2:53pmStart: 08-31-2023 End: 47-05-7838Llssrmjyzsrafldnxvl Discontinued MG PO August 31, 2023 12:00am September 10, 2023 2:53pmStart: 48-35-1157ntlg 1 tablet by mouth once daily hydroCHLOROthiazide 25 MG hydroCHLOROthiazide 25mg, 1 (one) Tablet daily # 90, 03/12/2022, Ref. x3.Active Oral daily for 90 days Mar, Activetake 1 tablet by mouth in the morninghydroCHLOROthiazide (HYDRODiuril) 12.5 MG tablet Take 12.5 mg by mouth in the morning. Activelutein 25 mg / zeaxanthin 5 mg oral capsule (15 sources)Lutein-Zeaxanthin 25-5 MG capsule Orally Cvetni17 hr mirabegron 50 mg extended release oral tablet (20 sources)beta3-Adrenergic AgonistStart: 69-45-9318runb 1 tablet by mouth once dailyStart: 08-31-2023 End: 18-87-9616jmux 1 tablet by mouth every twenty-four hoursMirabegron (Myrbetriq) 50 mg tablet extended release 24 hr Discontinued MG PO August 31, 2023 12:00am March 19, 2024 10:11amtiZANidine 2 mg oral tablet (2 sources)Central alpha-2 Adrenergic AgonistStart: 08-18-0806tbyf 1 tablet by mouth once daily at bedtime as neededdl-alpha tocopheryl acetate 100 unt oral capsule (5 sources) End: 55-70-6334hivwx tocopherol (Vitamin E) 100 units capsule 1 capsule 1 (one) time each day at the same time. 03/24/2024 Discontinued Completed/Discontinued Medications MedicationDrug Class(es)DatesSig (Normalized)Sig (Original)[id number] 200 actuat albuterol 0.09 mg/actuat metered dose inhaler (5 sources)beta2-Adrenergic AgonistStart: 08-31-2023 End: 65-23-8153skpt 1 puff(s) by inhalation four times daily as needed for wheezingAlbuterol Sulfate 90 mcg/actuation HFA aerosol inhaler Discontinued 2 PUFF INHALATION Four times daily as needed for shortness of breath or wheezing 8.5 0 August 31, 2023 12:00am March 13, 2024 9:07amazithromycin 250 mg oral tablet (8 sources)Macrolide AntimicrobialStart: 04-28-2024 End: 29-88-8271Ikujolsfozrx 250 mg tablet Discontinued 0 PO daily 6 5 0 April 28, 2024 1:00am July 06, 2024 11:33am Bronchitis Bronchitis, not specified as acute or chronic Take 2 on day 1 and then take 1for the next 4 days (days 2-5)Start: 08-31-2023 End: 37-34-7358jxkf 2 tablets by mouth once daily, then take 1 tablet by mouth once dailyAzithromycin (Zithromax Z-Carrington) 250 mg tablet Discontinued 250 MG PO Daily 6 5 August 31, 2023 12:00am March 13, 2024 9:07am take 2 tabs today and 1 daily for the next 4 daysStart: 87-28-6949Cuosyoogzoqe 250 MG as directed Orally 2 tabs po today, then 1 tab daily x 4 more days for 5 Apr, Active benzonatate 200 mg oral capsule (2 sources)Non-narcotic AntitussiveStart: 04-28-2024 End: 54-11-1965wwut 1 capsule by mouth three times daily as needed for cough Benzonatate 200 mg capsule Discontinued 200 MG PO Three times daily as needed for cough 30 April 28, 2024 1:00am July 06, 2024 11:33am Bronchitis Bronchitis, not specified as acute or chronic1 ml methylPREDNISolone acetate 40 mg/ml injection (9 sources)CorticosteroidStart: 12-08-2024 End: 25-90-9583aioqrtFDVAVEVowbom acetate (DEPO-Medrol) injection 40 mgStart: 12-08-2024 End: 33-66-325416 mg, Intra-articular, Once PRN Procedure, Starting on Sat12/08/24 at 1040, For 1 doseStart: 08-31-2023 End: 84-26-5309aezm 1 tablet by mouth onceMethylprednisolone (Medrol (Carrington)) 4 mg tablets,dose pack Discontinued 0 PO per package directions August 31, 2023 12:00am March 13, 2024 9:07am PO PER PKG DIR for 6 days Problems Active Problems Problem ClassificationProblemDateDocumented DateEpisodic/ChronicAbdominal pain (7 sources)Unspecified abdominal pain; Translations: [Abdominal pain]Onset: 81-34-7488ShoyipmlBxrgu bronchitis (3 sources)Acute bronchitis; Translations: [Acute bronchitis due to other specified organisms]EpisodicCataract (20 sources)After-cataract of right eye; Translations: [Other secondary cataract, right eye]Onset: 12-10-2022 Resolved: 282332-46-5524ZpcgqimQgxspwx obstructive pulmonary disease and bronchiectasis (3 sources)Bronchitis; Translations: [Bronchitis, not specified as acute or chronic]67-98-8321EolsyotkOkhxatsoe hypertension (14 sources)Essential (primary) hypertension; Translations: [Essential hypertension]Onset: 30-75-7669VjkwhuvJnnkfzjoiklmg and screening for infectious disease (3 sources)Vaccination given; Translations: [Encounter for immunization]Episodic Nonspecific chest pain (1 source)Chest wall pain; Translations: [Other chest pain]62-56-9945Vbckswbt Osteoarthritis (19 sources)Osteoarthritis of right knee joint; Translations: [Unilateral primary osteoarthritis, right knee]24-53-9030NdbaghiDaote circulatory disease (3 sources)Elevated blood-pressure reading without diagnosis of hypertension; Translations: [Elevated blood-pressure reading, without diagnosis of hypertension]EpisodicOther connective tissue disease (3 sources)History of left total knee replacement; Translations: [Presence of left artificial knee joint]93-56-2644RiibiymCjkwz connective tissue disease (1 source)Ganglion, right wristEpisodicOther diseases of bladder and urethra (7 sources)Overactive bladder; Translations: [Overactive bladder]03-19-2024 ChronicOther diseases of bladder and urethra (2 sources)Overactive bladder; Translations: [Hypertonicity of bladder]Chronic Other injuries and conditions due to external causes (3 sources)History of fall; Translations: [History of falling]EpisodicOther nervous system disorders (3 sources)Carpal tunnel syndrome; Translations: [Carpal tunnel syndrome, unspecified upper limb]Onset: 38-29-4358OubzudkIgyzl nervous system disorders (5 sources)Chronic pain; Translations: [Other chronic pain]37-49-7001Qipcrik Other nervous system disorders (5 sources)Other chronic pain; Translations: [Other chronic pain]03-13-2024 ChronicOther non-traumatic joint disorders (6 sources)Pain in left knee; Translations: [Pain in joint, lower leg]03-06-2024 EpisodicOther non-traumatic joint disorders (2 sources)Pain in right knee; Translations: [Pain in joint, lower leg] 51-78-9574IivkfyyqYsvlv screening for suspected conditions (not mental disorders or infectious disease) (12 sources)Encounter for screening mammogram for malignant neoplasm of breast; Translations: [Abnormal findings on diagnostic imaging of other abdominal regions, including retroperitoneum]Onset: 93-53-9493BeeblnrcSiiph upper respiratory infections (6 sources)Acute maxillary sinusitis; Translations: [Acute recurrent maxillary sinusitis]Onset: 02-33-3598MxtqquuvPrxygrox codes; unclassified (1 source)Family history of malignant neoplasm of breast; Translations: [FAMILY HX MALIG NEOPLASM OF BREAST]Onset: 79-69-8410BweclcelKjisrmnz codes; unclassified (1 source)Family history of malignant neoplasm of other organs or systems; Translations: [FAM HX MALIG NEOPLASM OTH ORGN/SYS]Onset: 90-85-1044Ljsvowko Residual codes; unclassified (3 sources)Requires influenza virus vaccination; Translations: [Need for prophylactic vaccination and inoculation, Influenza]EpisodicRetinal detachments; defects; vascular occlusion; and retinopathy (16 sources)Nonexudative age-related macular degeneration; Translations: [Nonexudative age-related macular degeneration, bilateral, intermediate dry stage]Onset: hronic Past or Other Problems Problem ClassificationProblemDateDocumented DateEpisodic/ChronicInflammation; infection of eye (except that caused by tuberculosis or sexually transmitteddisease) (12 sources)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; Translations: [Unspecified blepharitis right eye, upper and lower eyelids]Onset: 680266-07-1842PykekjbeXrcsh eye disorders (16 sources)Dry eyes; Translations: [Dry eye syndrome of bilateral lacrimal glands]Onset: 129831-77-4438IizfqntfSkenw non-traumatic joint disorders (3 sources)Arthralgia of the lower leg; Translations: [Pain in joint, lower leg] Onset: 24-60-4438LbedjmodLdzzm skin disorders (3 sources)Disorder of skin and/or subcutaneous tissue; Translations: [Unspecified disorder of skin and subcutaneous tissue]Onset: 43-30-9721Umdegkpz Other skin disorders (3 sources)Inflamed seborrheic keratosis; Translations: [Inflamed seborrheic keratosis]Onset: 19-38-1799AedyhzcdUgnmmupoglyr (2 sources)Acute pain of right ujaz66-24-6319 Results Test NameValueInterpretationReference RangeFacilityNo Panel Informationon 38-84-6581Mi. Tamela Wisdom DO 12/09/2024 1:00 PM L Inj/Asp: R knee on 12/08/2024 10:40 AM Details: 21 G needle, anterolateral approach Medications: 40 mg methylPREDNISolone acetate 40 MG/ML Outcome: tolerated well, no immediate complications SKIN PREPPED WITH ISOPROPYL Procedure, treatment alternatives, risks and benefits explained, specific risks discussed. Consent was given by the patient. [facility] SystemXR Knee - right 1 or 2 Viewson 56-16-4738Gceunor Result: X-rays AP and lateral of right knee showed severe varus deformity with fzmk-av-ukot articulation to the medial joint line. There is flattening of the articular surfaces medially to the tibia plateau and femoral condyle. There is marginal osteophytic formation and subchondral sclerosis noted medially and the patellofemoral joint. There is no evidence of fracture or dislocation. Bony structures viewed showed appropriate ossification. [facility] SystemRadiology Study observation (narrative)[facility] LouisBasophils Auto (Bld) [#/Vol]on 57-01-4163Jydhyyhww (Bld) [#/Vol]0.1 10 3/uL0.0-0.1FAvita Health System Bucyrus HospitalBasophils/100 WBC Auto (Bld)on 00-31-3728Ezuqanrvh/100 WBC (Bld)1.1 %0.2-2.0[facility] Cholesterol in LDL Calc [Mass/Vol]on 30-47-0346Johalovqikq in LDL [Mass/Vol] 116.0 mg/dLParkview HealthComment on above:<100 mg/dl QLXEBSQ221-243 mg/dl NEAR OR ABOVE HOXRHHQ736-333 mg/dl BORDERLINE IAQU445-866 mg/dl HIGH>190 mg/dl VERY HIGHCholesterol in VLDL Calc [Mass/Vol]on 03-26-2024 Cholesterol in VLDL [Mass/Vol]17.2 mg/dLParkview Health Eosinophils/100 WBC Auto (Bld)on 87-78-0361Herlejbagqn/100 WBC (Bld)6.0 %0.9-7.0 [facility] HealthErythrocyte distribution width Auto (RBC) [Ratio]on 78-96-3737Rcyeuurpiyp distribution width (RBC) [Ratio]12.6 %11.0-15.0 [facility] HealthEstimated glomerular filtration rate (GFR) non- Americanon 01-32-8044PUS/1.73 sq M.predicted among non-blacks MDRD (S/P/Bld) [Vol rate/Area]48 mL/min/{1.73_m2}Low>=60 mL/min/1.73m 2FAvita Health System Bucyrus HospitalGlobulin Calc (S) [Mass/Vol]on 29-71-4152Aovacryi (S) [Mass/Vol]3.4 g/dLParkview HealthHematocrit Auto (Bld) [Volume fraction]on 59-99-9992Dqkrqfioqb (Bld) [Volume fraction]43.6 %36.0-48.0 [facility] HealthHemoglobin [Mass/volume] in Bloodon 03-26-2024 Hemoglobin (Bld) [Mass/Vol]14.2 g/dL12.0-16.0[facility] Laboratory - Chemistry and Chemistry - challengeon 74-20-8930Luoomvu [Mass/Vol] 3.6 g/dL3.4-5.0[facility] HealthALP [Catalytic activity/Vol]88 U/M28-104LqwczlugeParkview HealthALT [Catalytic activity/Vol]29 U/L 14-59Parkview HealthAST [Catalytic activity/Vol]20 U/L15-37 [facility] HealthBilirubin [Mass/Vol]0.6 mg/dL0.2-1.0[facility] HealthCalcium [Mass/Vol]9.1 mg/dL8.5-10.1FAvita Health System Bucyrus HospitalChloride [Moles/Vol]104 mmol/P38-986QzitihgqtParkview HealthCholesterol [Mass/Vol]194 mg/dL<=200[facility] Cholesterol in HDL [Mass/Vol]61 mg/qYFecw42-12NouplkzstParkview Health Comment on above:> or =60 mg/dl - LOW CARDIOVASCULAR RISK<40 mg/dl - HIGH CARDIOVASCULAR RISKCO2 [Moles/Vol]29.3 mmol/L21.0-32.0[facility] HealthCreatinine [Mass/Vol]1.11 mg/dLHigh0.55-1.02[facility] HealthGFR/1.73 sq M.predicted MDRD (S/P/Bld) [Vol rate/Area]58 mL/min/{1.73_m2} Low>=60 mL/min/1.73m 2FAvita Health System Bucyrus HospitalGlucose [Mass/Vol]120 mg/bSOpve92-528QifdpkkskParkview HealthPotassium [Moles/Vol]4.0 mmol/L 3.5-5.1FAvita Health System Bucyrus HospitalProtein [Mass/Vol]7.0 g/dL6.4-8.2 [facility] Centerodium [Moles/Vol]144 mmol/V977-053EmwfbwxxvParkview HealthTriglyceride [Mass/Vol]86 mg/dL<=150Park[facility] HealthUrea nitrogen [Mass/Vol]17.0 mg/dL7.0-18.0[facility] HealthUrea nitrogen/Creatinine [Mass ratio]15.3 mg/mgParkview HealthLaboratory - Hematology and Cell countson 56-79-1343Xlkmhoft granulocytes/100 WBC (Bld)0.4 %0.0-0.5FAvita Health System Bu[facility] Hospital Leukocytes [#/volume] corrected for nucleated erythrocytes in Blood by Automated counon 10-18-7151JYF corrected for nucl RBC Auto (Bld) [#/Vol]4.7 10 3/uL 4.0-11.0[facility] HealthLymphocytes Auto (Bld) [#/Vol]on 57-68-5923Ijtwvkdgmgr (Bld) [#/Vol]1.1 10 3/uLLow1.2-3.8[facility] HealthLymphocytes/100 WBC Auto (Bld)on 62-17-5213Zrmxwtvymun/100 WBC (Bld)24.0 %20.5-60.0[facility] HospitalH Auto (RBC) [Entitic mass]on 88-62-7904ODV (RBC) [Entitic mass]31.5 pg26.7-34.0[facility] HealthMCHC Auto (RBC) [Mass/Vol]on 91-17-5773DNQI (RBC) [Mass/Vol]32.6 g/dL29.9-35.2FAvita Health System Bucyrus HospitalMCV Auto (RBC) [Entitic vol]on 58-05-5439ARC (RBC) [Entitic vol]96.7 fL81.0-99.0[facility] HealthMonocytes Auto (Bld) [#/Vol]on 08-03-4361Wsrkylrqj (Bld) [#/Vol]0.5 10 3/uL0.3-0.8[facility] HealthMonocytes/100 WBC Auto (Bld)on 31-54-8644Tbavtwwxx/100 WBC (Bld)9.9 %1.7-12.0[facility] Neutrophils Auto (Bld) [#/Vol]on 50-82-7459Bhyullcjctz (Bld) [#/Vol]2.7 10 3/uL 1.4-6.5FAvita Health System Bucyrus HospitalNeutrophils/100 WBC Auto (Bld)on 38-94-3039Crbemighztl/100 WBC (Bld)58.6 %43.0-75.0[facility] HealthNo Panel Informationon 69-00-5299Dayihzfopkj # (Auto)0.3 10 3/uL0.0-0.7 [facility] HealthImmature Granulocyte # (Auto)0.02 10 3/uL 0.00-0.03[facility] HealthPlatelet mean volume Auto (Bld) [Entitic vol]on 14-55-7281Wnvtszoz mean volume (Bld) [Entitic vol]8.6 fLLow 9.5-13.5FAvita Health System Bucyrus HospitalPlatelets Auto (Bld) [#/Vol]on 95-67-5506Wlnwxusae (Bld) [#/Vol]233 10 3/eE317-704BrfmkemkcParkview HealthRBC Auto (Bld) [#/Vol]on 14-48-5117BVM (Bld) [#/Vol]4.51 10 6/uL4.20-5.40 [facility] Centererum or plasma albumin/globulin mass ratioon 72-49-3635Wyzhsjf/Globulin [Mass ratio]1.1 {ratio}[facility] Centererum or plasma anion gap determinationon 28-82-2459Cagdw gap [Moles/Vol] 14.7 mmol/LFPremier Health Miami Valley Hospitalerum or plasma total cholesterol/high density lipoprotein (HDL) cholesterol mass rasheed 03-26-2024 Cholesterol.total/Cholesterol in HDL [Mass ratio]3.2 {ratio}[facility] HealthComment on above:3.3 - 4.4 LOW RISK4.4 - 7.1 AVERAGE RISK7.1 - 11.0 MODERATE RISK>11.0 HIGH RISKOptical coherence tomography study reporton 05-56-0997OCVEColumbus Regional Healthcare SystemRadiology Study observation (narrative) [facility] LouisXR Knee - left 1 or 2 Viewson 27-00-1895Tdwkzhk Result: AP and lateral of left knee [...] dislocation. Impression: Unremarkable left total knee arthroplasty. [facility] SystemRadiology Study observation (narrative)[facility] LouisCBC AUTO DIFFon 51-14-0569EOMZ #0.0 103/ulNormal0.0-0.1[facility] HospitalComment on above:Performed By: #### CBC #### [facility] [address] [address] [address] Cris ValadezBasophils/100 WBC (Bld)0.9 %Normal0.2-2.0[facility] Comment on above:Performed By: #### CBC #### [facility] [address] [address] [address] Cris Forte #0.2 103/ulNormal0.0-0.7The [facility] HospitalComment on above: Performed By: #### CBC #### [facility] [address] [address] [address] Cris Zafarosinophils/100 WBC (Bld)4.5 %Normal0.9-7.0[facility] Comment on above:Performed By: #### CBC #### [facility] [address] [place] [address] Dr. Cris Zafarrythrocyte distribution width (RBC) [Ratio]12.6 %Phxzbl64.0-15.0 The [facility] HospitalComment on above:Performed By: #### CBC #### [facility] [address] [place] [address] Dr. Cris ValadezHematocrit (Bld) [Volume fraction]41.6 %Pgkwtk59.0-48.0The [facility] HospitalComment on above:Performed By: #### CBC #### [facility] [address] [place] [address] Dr. Cris ValadezHemoglobin (Bld) [Mass/Vol]13.5 g/zQJkyajb75.0-16.0The [facility] HospitalComment on above:Performed By: #### CBC #### [facility] [address] [place] [address] Dr. Cris Hernandez #0.01 10e3/ulNormal0.00-0.03The [facility] HospitalComment on above:Performed By: #### CBC #### [facility] [address] [place] [address] Dr. Cris Hernandez %0.2 %Normal0.0-0.5The [facility] HospitalComment on above: Performed By: #### CBC #### [facility] [address] [place] [address] Dr. Cris CalzadaH #0.9 103/ulCritically low1.2-3.8The [facility] Comment on above:Performed By: #### CBC #### [facility] [address] [place] [address] Dr. Cris Faulknermphocytes/100 WBC (Bld)18.8 %Critically low20.5-60.0The [facility] HospitalComment on above:Performed By: #### CBC #### [facility] [address] [place] [address] Dr. Cris StoutUAL DIFF REQNONormalThe [facility] HospitalComment on above: Performed By: #### CBC #### [facility] [address] [address] [address] Cris Salinas (RBC) [Entitic mass]31.6 gpSiktuo52.7-34.0The [facility] HospitalComment on above:Performed By: #### CBC #### [facility] [address] [address] [address] Cris Salinas (RBC) [Mass/Vol]32.5 g/rQXkoijj10.9-35.2The [facility] HospitalComment on above:Performed By: #### CBC #### [facility] [address] [address] [address] Cris Salinas (RBC) [Entitic vol]97.4 jMXloduq92.0-99.0The [facility] HospitalComment on above:Performed By: #### CBC #### [facility] [address] [place] [address] Dr. Cris Sutton #0.5 103/ulNormal0.3-0.8The [facility] HospitalComment on above:Performed By: #### CBC #### [facility] [address] [place] [address] Dr. Cris Macdonaldocytes/100 WBC (Bld)9.9 %Normal1.7-12.0The [facility] Comment on above:Performed By: #### CBC #### [facility] [address] [address] [address] Cris Wen #3.1 103/ulNormal1.4-6.5The [facility] HospitalComment on above:Performed By: #### CBC #### [facility] [address] [address] [address] Cris Ramírezutrophils/100 WBC (Bld)65.7 %Duymcs87.0-75.0The [facility] HospitalComment on above:Performed By: #### CBC #### [facility] [address] [place] [address] Dr. Cris Cainlet mean volume (Bld) [Entitic vol]8.7 fLCritically low 9.5-13.5The [facility] HospitalComment on above:Performed By: #### CBC #### [facility] [address] [place] [address] Dr. Cris ValadezPLT223 103/enLhqahb199-120Hih [facility] HospitalComment on above: Performed By: #### CBC #### [facility] [address] [place] [address] Dr. Cris ValadezRBC4.27 106/ulNormal4.20-5.40The [facility] HospitalComment on above:Performed By: #### CBC #### [facility] [address] [place] [address] Dr. Cris ValadezWBC4.7 103/ulNormal4.0-11.0The [facility] HospitalComment on above: Performed By: #### CBC #### [facility] [address] [place] [address] Dr. Cris Wright 14(COMP METB)on 08-42-4772Lcvyxnz [Mass/Vol]3.7 g/dLNormal 3.4-5.0The [facility] HospitalComment on above:Performed By: #### CMP #### [facility] [address] [place] [address] Dr. Cris ValadezAlbumin/Globulin [Mass ratio]1.2 {ratio}NormalThe [facility] HospitalComment on above:Performed By: #### CMP #### [facility] [address] [place] [address] Dr. Cris Meyers [Catalytic activity/Vol]75 U/JClnnbq31-061Sqi [facility] HospitalComment on above:Performed By: #### CMP #### [facility] [address] [place] [address] Dr. Cris Corona [Catalytic activity/Vol]23 U/FCblrqh78-86Sdm [facility] HospitalComment on above:Performed By: #### CMP #### [facility] [address] [place] [address] Dr. Cris Jerome gap [Moles/Vol]9.4 mmol/LNormalThe [facility] HospitalComment on above:Performed By: #### CMP #### [facility] [address] [address] [address] Cris ValadezAST [Catalytic activity/Vol]21 U/NYmskym39-76Tce [facility] HospitalComment on above:Performed By: #### CMP #### [facility] [address] [address] [address] Cris ValadezBilirubin [Mass/Vol]0.6 mg/dLNormal0.2-1.0The [facility] Comment on above:Performed By: #### CMP #### [facility] [address] [address] [address] Cris ValadezCalcium [Mass/Vol]9.3 mg/dLNormal8.5-10.1The [facility] Comment on above:Performed By: #### CMP #### [facility] [address] [address] [address] Cris ValadezChloride [Moles/Vol]103 mmol/WFnrbvd45-372Rlu [facility] Comment on above:Performed By: #### CMP #### [facility] [address] [address] [address] Cris ValadezCO2 [Moles/Vol]30.4 mmol/NIjrtsa22.0-32.0[facility] Comment on above:Performed By: #### CMP #### [facility] [address] [address] [address] Cris ValadezCreatinine [Mass/Vol]0.84 mg/dLNormal0.55-1.02The [facility] HospitalComment on above:Performed By: #### CMP #### [facility] [address] [address] [address] Cris ZafarGFR-AF SLOVENIAN>60Normal>=60The [facility] HospitalComment on above:Performed By: #### CMP #### [facility] [address] [address] [address] Cris ZafarGFR-NON AF SLOVENIAN>60Normal>=60The [facility] HospitalComment on above:Performed By: #### CMP #### [facility] [address] [address] [address] Cris ValadezGlobulin (S) [Mass/Vol]3.2 g/dLNormalThKettering Health – Soin Medical CenterComment on above:Performed By: #### CMP #### [facility] [address] [address] [address] Cris ValadezGlucose [Mass/Vol]108 mg/dLCritically wjyy92-558Hac [facility] HospitalComment on above:Performed By: #### CMP #### [facility] [address] [address] [address] Cris ValadezPotassium [Moles/Vol]3.8 mmol/LNormal3.5-5.1[facility] Comment on above:Performed By: #### CMP #### [facility] [address] [address] [address] Cris ValadezProtein [Mass/Vol]6.9 g/dLNormal6.4-8.2[facility] Comment on above:Performed By: #### CMP #### [facility] [address] [address] [address] Cris ValadezSodium [Moles/Vol]139 mmol/OTzsigm446-128Vzz [facility] Comment on above:Performed By: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 MEDICATIONS: Current Outpatient Medications Medication Instructions amoxicillin (Amoxil) 500 MG tablet 4 tabs PO once 30-60 mins before procedure with food aspirin 81 MG EC tablet 1 tablet Orally two times daily Calcium Carbonate-Vitamin D (Oyster Shell Calcium/D) 500-5 MG-MCG tablet 1 tablet, Oral, 2 times daily with meals hydroCHLOROthiazide (HYDRODIURIL) 12.5 mg, Oral, Daily RT Lutein-Zeaxanthin 25-5 MG capsule Orally Myrbetriq 50 MG 24 hr tablet Every 24 hours PHYSICAL EXAM: Knee Musculoskeletal Exam Gait Limp: right Inspection Leg length disparity: no [...] to calculate BMI. Tobacco Use: Low Risk (10/23/2024) Patient History Smoking Tobacco Use: Never Smokeless Tobacco Use: Never Passive Exposure: Not on file Alcohol Use: Not At Risk (06/24/2023) AUDIT-C Frequency of Alcohol Consumption: 4 or more times a week Average Number of Drinks: 1 or 2 Frequency of Binge Drinking: Never IMAGING: XR knee 1 or 2 views right Imaging Result: X-rays AP and lateral of right knee showed severe varus deformity with [id number] articulation tothe medial joint line. There is flattening of the articular surfaces medially to the tibia plateau and femoral condyle. There is marginal osteophytic formation and subchondral sclerosis noted medially and the patellofemoral joint. There is no evidence of fracture or dislocation. Bony structures viewed showed appropriate ossification. L Inj/Asp: R knee on 12/08/2024 10:40 AM Details: 21 G needle, anterolateral approach Medications: 40 mg methylPREDNISolone acetate 40 MG/ML Outcome: tolerated well, no immediate complications SKIN PREPPED WITH ISOPROPYL Procedure, treatment alternatives, risks and benefits explained, specific risks discussed. Consent was given by the patient. Orders Placed This Encounter Procedures L Inj/Asp: R knee This order was created via procedure documentation XR knee 1 or 2 views right Reason for exam:: PAIN ASSESSMENT: ICD-10-CM 1. Primary osteoarthritis of right knee M17.11 2. Acute pain of right knee M25.561 XR knee 1 or 2 views right L Inj/Asp: R knee PLAN: We have discussed her home exercise program and her restrictions. We have discussed her x-rays she refuses a right total knee at this time. We have injected her right knee under sterile technique after obtaining informed consent with Depo-Medrol 40 mg without incident. We'll see her back in 3 months to reassess her status. Questions answered in laymen terms at the bedside. The diagnosis, home exercise plan and any ongoing restrictions/ recommendations reviewed. If unable to be reached in office, I recommend evaluation at nearest Emergency Room if any symptoms worsened or new symptoms develop for requiring urgent evaluation. documented in this encounterTenet St. [id number] Telephone encounter Note* Telephone Encounter - Yang Salas NP - 11/30/2024 8:20 AM EDT Allergies reviewed. Rx sent to pharmacy [facility] [id number] Miscellaneous Notes* Telephone Encounter - Yang Salas NP - 11/30/2024 8:20 AM EDT Allergies reviewed. Rx sent to pharmacy * Telephone Encounter - Diana Trotter - 11/30/2024 8:18 AM EDT Barbara Boss needed a premed as well. * Telephone Encounter - Diana Trotter - 11/27/2024 1:34 PM EDT Patient has dental appt next week has TKA please call in premed to [facility] [phone] no allergies documented in this encounterTenet St. LouisRstmkcjqre50-72-7775 Telephone encounter Note* Telephone Encounter - Diana Trotter - 11/30/2024 8:18 AM EDT Barbara Boss needed a premed as well. [facility] LouisXfquaeewua79-79-9730 Telephone encounter Note* Telephone Encounter - Diana Sergo - 11/27/2024 1:34 PM EDT Patient has dental appt next week has TKA please call in premed to [facility] [phone] LouisKjfivjsfss02-49-9612 History of Present illness Narrative* Kacey Gallegos Artis, DO - 06/10/2024 10:00 AM EST Images from the original note were not included. HISTORY OF PRESENT ILLNESS: EST PT Barbara Boss is an 78 y.o. @ female. (EST PT) RECHECK (R) KNEE ; S/P USG CORTISONE INJ 03/13/24 (12WKS 5DAYS)- DR QUICK (PT WAS REFERRED FOR VISCO) XRAYS, STANDING AP 03/06/24 IN [facility] NO MRI NO MDP / PREDNISONE S/P CORTISONE INJ 03/13/24 - DR QUICK NO VISCO NO PHYSICAL THERAPY PAIN MGMT ; DR QUICK (VISCO REFERRAL) NOTES SOME IMPROVEMENT WITH THE INJECTION ( 1 INJ) ; 50% IMPROVEMENT. DENIES SWELLING. ROM IS STILLOKAY. DENIES WEAKNESS/ POPPING/ CRACKING. DIFFUSE PAIN IN THE FRONT OF THE KNEE. NO HEP. NO SUPPORTBRACES. TAKE ADVIL PRN FOR PAIN. NO CREAMS. [...] for requiring urgent evaluation. documented in this encounterTenet St. LouisXdizxzajdk48-39-1420 Evaluation note* Diagnosis Onset Date Resolution Status Admit Date Bronchitis acuteNovember 2023 12:55pmOther chronic painacuteDecember 2023 9:28am Primary osteoarthritis of right [facility]acute[facility] 20[facility] 9:28am [facility] Work Phone: [phone] 989-715610-22-2024 NoteRight Eye Quality was good. Scan locations included subfoveal. Progression has been stable. Findings include abnormal foveal contour, pigment epithelial detachment. Left Eye Quality was good. Scan locations included subfoveal. Progression has been stable. Findings include normal foveal contour, pigment epithelial detachment.[facility]et St. 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 documented in this encounterTenet St. [id number] History of Present illness Narrative* Jr. Tamela Wisdom DO - 03/06/2024 9:30 AM EDT Images from the original note were not included. HISTORY OF PRESENT ILLNESS: EST PT Barbara Boss is an 78 y.o. @ female. (EST PT) HERE FOR BIENNIAL CHECK OF (L) TKA 03/28/21 (~3 YRS) XRAYS DONE TODAY, 03/06/24 IN [facility] NO BONE SCAN NO MDP / [...] TKA. Tamela Wisdom D.O. documented in this encounterTenet St. LouisLiniekrkua85-59-2678 Evaluation note* Encounter Date Diagnosis Assessment Notes Treatment Notes Treatment Clinical Notes 16 Oct, 2023 Medicare annual wellness visit, subsequent (ICD-10 - [...] reviewed and amended by provider signed below. Mar,anglion of right wrist (ICD-10 - M67.431)Declines referral to ortho at this time. Mar,Overactive bladder (ICD-10 - N32.81)chronic problem. pt states it is resolved with this med. Mar,Essential (primary) hypertension (ICD-10 - I10)Blood pressure remains well controlled at this time. Denies cardiac symptoms. Shows no signs or symptoms or poor control. Patient to continue with above medication and we will continue to monitor. Advised to pay attention to body and symptoms. Any developing patterns. Stay well hydrated. Mar,Screening mammogram for breast cancer (ICD-10 - Z12.31) [facility] Other Evaluation noteNo InformationNortEllwood [facility] Center [facility] Other Evaluation noteNo assessment information available [facility] Work Phone: Evaluation note* Diagnosis Acute pain of left knee- Primary History of total knee arthroplasty, left Primary osteoarthritis of right knee documented [facility] this encounter [facility]* Diagnosis Onset Date Resolution Status Other chronic pain acutePrimary osteoarthritis of right kneeacute [facility] Work Phone: Evaluation note* Diagnosis Onset Date Resolution Status Other chronic pain acutePrimary osteoarthritis of right kneeacuteEssential (primary) hypertension acuteScreening mammogram for breast canceracute [facility] Work Phone: Evaluation note* Diagnosis Intermediate stage nonexudative age-related macular degeneration of both eyes- Primary Bilateral posterior capsular opacification Unspecified after-cataract Dry eyes Unspecified tear film insufficiency Blepharitis of upper and lower eyelids of both eyes, unspecified type documented in this encounter [facility]* Diagnosis Onset Date Resolution Status Other chronic pain acutePrimary osteoarthritis of right kneeacuteEssential (primary) hypertension acuteMedicare annual wellness visit, subsequentacuteOveractive bladderacute Primary osteoarthritis of right kneeacuteScreening mammogram for breast cancer acuteOther chronic painacutePrimary osteoarthritis of right kneeacute [facility] Work Phone: Evaluation note* Diagnosis Primary osteoarthritis of right knee- Primary Pain in joint of right knee documented in this encounter [facility]* Diagnosis History of total knee arthroplasty, left- Primary documented in this encounter [facility]* Diagnosis Primary osteoarthritis of right knee- Primary Acute pain of right knee documented in this encounter [facility]* Diagnosis Acute pain of right knee- Primary Primary osteoarthritis of right knee documented in this encounter [facility] HealthcareHistory general Narrative - Reported* Type Description Date Medical History Problem Title : ADL Summary, Problem Description : ADL Summary, Problem Comment : Bathing~independent^Dressing~independent^Eating~independent^Toil eting~independent^Transferring~independent^Continence~independen t, Problem Status : Active,, Medical HistoryProblem Title : Adult BMI between 22 kg/m2 and 30 kg/m2, Problem Description : Adult BMI between 22kg/m2 and 30 kg/m2, Problem Comment : 0~0~0, Problem Status : Active,,Medical HistoryProblem Title : Adult BMI greater than or equal to 30 kg/m2, Problem Description : Adult BMI greater than or equal to 30 kg/m2, Problem Comment : 0~0~0, Problem Status : Active,,Medical History Problem Title : Adult BMI less than 22 kg/m2, Problem Description : Adult BMI less than 22 kg/m2, Problem Comment : 0~0~0, Problem Status : Active,,Medical HistoryProblem Title : advanced directive reviewed, Problem Description : advanced directive reviewed, Problem Comment : Done, Problem Status : Active,, Medical HistoryProblem Title : cardiac risk group, Problem Description : cardiac risk group, Problem Comment : B, Problem Status : Active,,Medical HistoryProblem Title : chest wall assessment, physical exam, Problem Description : chest wall assessment, physical exam, Problem Comment : no deformities or breast masses noted. , Problem Status : Active,,Medical HistoryProblem Title : Child BMI less than 18.5 kg/m2, Problem Description : Child BMI less than 18.5 kg/m2, Problem Comment : 0~0~0, Problem Status : Active,,Medical HistoryProblem Title : compliance with medical treatment, Problem Description : compliance with medical treatment, Problem Comment : Done, Problem Status : Active,,Medical History Problem Title : coronary heart disease (CHD), calculated 10 year mortality risk, Problem Description : coronary heart disease (CHD), calculated 10 year mortality risk, Problem Comment : 11 %, ProblemStatus : Active,,Medical HistoryProblem Title : Depression Screening, Problem Description : Depression Screening, Problem Comment :Negative, Problem Status : Active,,Medical HistoryProblem Title : Depression: Baseline PHQ-9 total score?, Problem Description : Depression: BaselinePHQ-9 total score?, Problem Comment : 0, Problem Status : Active,, Medical HistoryProblem Title : Diabetes Mellitus, Problem Description : Diabetes Mellitus, Problem Comment : No, Problem Status : Active,,Medical HistoryProblem Title : Fall assessment-Total score, Problem Description : Fall assessment-Total score, Problem Comment : Complete Low Risk, Problem Status : Active,,Medical HistoryProblem Title : Fall Risk Assessment: I am worried about falling, Problem Description : Fall Risk Assessment: I am worried about falling, Problem Comment : No, Problem Status : Active,,Medical HistoryProblem Title : Fall Risk Assessment: Sometimes I feel unsteady when I am walking, Problem Description : Fall Risk Assessment: Sometimes I feel unsteady when I am walking, Problem Comment : No, Problem Status : Active,,Medical HistoryProblem Title : falls in the last twelve months, Problem Description : falls in the last twelve months, Problem Comment : No, Problem Status : Active,,Medical HistoryProblem Title : Falls: Risk Assessment - Patient screened for falls, fall risk, Problem Description: Falls: Risk Assessment - Patient screened for falls, fall risk, Problem Comment : Done, Problem Status : Active,,Medical HistoryProblem Title : get up and go (mobility test), Problem Description : get up and go (mobility test),Problem Comment : 1, Problem Status : Active,,Medical HistoryProblem Title : hypertension, hx of, Problem Description : hypertension, hx of, Problem Comment : yes, Problem Status : Active,,Medical HistoryProblem Title : IADL Summary, Problem Description : IADL Summary, Problem Comment : Transportation~i ndependent^Meal/Food Preparation~independent^Shopping Errands~independent^Housekeeping/Chores~independent^Money Management/Finances~independent^Medication Management~independent^Ability to Use Telephone~independent^Laundry~independent, Problem Status : Active,,Medical HistoryProblem Title : Injury sustained from fall(s)?, Problem Description : Injury sustained from fall(s)?, Problem Comment : No, Problem Status : Active,, Medical HistoryProblem Title : Is Patient on Medicare. Used for Residency Programs to evaluate precepting guidelines from Medicare, Problem Description : Is Patient on Medicare. Used for Residency Programs to evaluate precepting guidelines from Medicare, Problem Comment : Yes, Problem Status : Active,, Medical HistoryProblem Title : Medicare Annual Wellness Exam, Problem Description : Medicare Annual Wellness Exam,Problem Comment : [id number], Problem Status : Active,,Medical HistoryProblem Title : Medicare Part B,CMOD Checklist #1, Problem Description : Medicare Part B,CMOD Checklist #1, Problem Comment : Yes, Problem Status : Active,,Medical HistoryProblem Title : Mental Status Exam summary of all, Problem Description : Mental Status Exam summaryof all, Problem Comment : Orientation to Time~10/05^Orientation to Place~10/05^Registration~08/03^Attention/Calculation~10/05^Recall~08/03^Language-name 2 objects~2/2^Language-repeat~06/03^Language-follow 3-stepcommand~08/03^Language-read and follow direction~06/03^Write a sentence~06/03^Copy design~06/03, Problem Status : Active,,Medical HistoryProblem Title : Mental Status Exam total score, Problem Description : Mental Status Exam total score, Problem Comment : , Problem Status : Active,,Medical HistoryProblem Title : mini mental status exam, score, Problem Description : mini mental status exam, score, Problem Comment : 30, Problem Status : Active,,Medical HistoryProblem Title : no known problems, Problem Description : no known problems, Problem Comment : F, Problem Status : Active,,Medical HistoryProblem Title : Number of previous fall in past year, Problem Description : Number of previous fallin past year, Problem Comment : 0, Problem Status : Active,,Medical HistoryProblem Title : osteoporosis risk, Problem Description : osteoporosis risk, Problem Comment : No, Problem Status : Active,,Medical HistoryProblem Title : past medical history E&M, Problem Description : past medical history E&M, Problem Comment : Fibrocystic breast disease Cervical lymphadenopathy - benign biopsy Choleithiasis, Problem Status : Active,,Medical HistoryProblem Title : past medical history reviewed, Problem Description : past medical history reviewed,Problem Comment : reviewed - no changes required, Problem Status : Active,,Medical HistoryProblem Title : Patient Health Questionaire 9 item inventory, Problem Description : Patient Health Questionaire 9 item inventory, Problem Comment : None, Problem Status : Active,,Medical HistoryProblem Title : PHQ-9 (patient questionnaire) score, Problem Description : PHQ-9 (patient questionnaire) score, Problem Comment : 0, Problem Status : Active,,Medical HistoryProblem Title : PHQ-9 Diagnosis, Problem Description : PHQ-9 Diagnosis, Problem Comment : No indication of depression, Problem Status : Active,,Medical HistoryProblem Title : PHQ2 Questionairre Score, Problem Description : PHQ2 Questionairre Score, Problem Comment : 0, Problem Status : Active,,Medical HistoryProblem Title : PHQ9 Question One score, Problem Description : PHQ9 Question One score, Problem Comment : 0, Problem Status : Active,,Medical HistoryProblem Title : PHQ9 Question Two score, Problem Description : PHQ9 Question Two score, Problem Comment : 0, Problem Status : Active,,Medical HistoryProblem Title : renal disease, hx of, Problem Description : renal disease, hx of, Problem Comment :No, Problem Status : Active,,Medical HistoryProblem Title : very low density lipoproteins, Problem Description : very low density lipoproteins,Problem Comment : 23.0, Problem Status : Active,, Surgical HistoryProblem Title : [facility], Problem Status : Active,Surgical HistoryProblem Title : past surgical history reviewed, Problem Description : past surgical history reviewed, Problem Comment : reviewed - no changes required, Problem Status : Active,Surgical HistoryProblem Title : surgical procedures, hx of, Problem Description : surgical procedures, hx of, Problem Comment : Lumbar surgery 2000 - Olivia L hand carpal tunnel [facility], Problem Status : Active,Surgical HistoryProblem Title : surgical procedures, hx of, Problem Description : surgical procedures, hx of, Problem Comment : Lumbar surgery 2000 - Olivia, Problem Status : Active,Surgical History 1: Problem Title : surgical procedures, hx of, Problem Description : surgical procedures, hx of, Problem Comment : Lumbar surgery 2000 - Olivia L hand carpal tunnel surgery - [facility] 07/18 L knee arthroscopic surgery 04/2017 - Dr. Wisdom, ProblemSurgical History2: Status : Active, orderbolt Other Reason for referral (narrative)* Consultation (Routine) - AuthorizedSpecialtyDiagnoses / ProceduresReferred By Contact Referred To [facility] Medicine Diagnoses Primary osteoarthritis of right knee Procedures [place] OFFICE/OUTPATIENT [facility] 60 MINUTES Jr. Tamela Wisdom, [address] [facility] [address] [place] [address] Regino Quick MD [address] [address] Referral IDStatusReasonStart DateExpiration DateVisits RequestedVisits [id number] Consult and Treat / [facility] HealthcareReason for referral (narrative)No reason for referral information availableAvita [facility] Work Phone: Summary Purpose Family History No Family History Records FoundNo Family History Records FoundNo Family History Records FoundNo Family History Records Found Advance Directives Advance Directive Response Recorded Date/ Time Advance Directives No August 30 11:16am Advance Directive Response Recorded Date/ Time Advance Directives No August 30 10:16am Advance Directive Response Recorded Date/ Time Advance Directives No March 29, 2025 11:09am Chief Complaint and Reason for Visit Chief Complaint Cough Chief Complaint REFF BY DR. TAMELA WELLS Reason for Visit Other chronic pain Primary osteoarthritis of right knee Chief Complaint REFF BY DR. TAMELA WELLS MEDICARE WELLNESSReason for VisitOther chronic pain Primary osteoarthritis of right knee Essential (primary) hypertension Screening mammogram for breast cancer Chief Complaint REFF BY DR. TAMELA Disla [facility] MEDICARE WELLNESS STEROID INJ TO RIGHT KNEEReason for VisitOther chronic pain Primary osteoarthritis of right knee [...] of right knee Dec ember 2023 9:28am Chief Complaint Admit Date flu shot March 29, 2025 1 0:55am Additional Source Comments INFORMATION SOURCE (unrecogn ized section and content) DATE CREATED AUTHOR 06/26/2021 [facility] DATE CREATED AUTHOR AUTHOR'S ORGANIZ ATION 11/25/2021 [facility] DATE CREATED AUTHOR AUTHOR'S ORGANIZ ATION 03/24/2022 [facility] DATE CREATED AUTHOR AUTHOR'S ORGANIZ ATION 03/08/2025 [facility] EPIC REASON FOR VISIT (unrecogniz ed section and content) ReasonCommentsPost-opReasonCommentsPainReasonOnset DateCommentsneeds premed for dental appt11/27/20249434SodsflWpkqkzvdWgkjcb-woJrsgxxFftoypmaPcrgeq-vy Care Teams (unrecognized sec tion and content) Team Status: Active Member Role Status Dates Eric Crooks MD Primary Care Provider Active Team Status: Inactive Member Role Status Dates Eric Crooks MD Primary Care Provider Active Start: August 31, 2023 End: August 30joesph Panda NP-CAttending ProviderActiveStart: August 31, 2023 End: August 31, 2023Team MemberRelationshipSpecialtyStart DateEnd Date Eric Crooks MD [address] [place] [id number] PCP - GeneralFamily Medicine06/06/23Team MemberRelationshipSpecialtyStart DateEnd Date Eric Crooks MD [address] [place] [facility] [id number] PCP - [facility] Medicine06/06/23 Team Status: Inactive Member Role Status Dates Eric Crooks MD Primary Care Provider Active Start: March 13, 2024 End: March 13, 2024Kristen Alston ProviderActiveStart: March 13, 2024 End: March 13, 2024Jose Abdalla Jr ProviderActiveStart: March 13, 2024 End: March 13, 2024 Team Status: Inactive Member Role Status Dates Eric Crooks MD Primary Care Provide r, Attending Provider Active Start: March 19, 2024 End: March 19, 2024Team MemberRelationshipSpecialtyStart DateEnd Date Eric Crooks MD [address] [place] [facility] [place] [phone] PCP - [facility] Medicine06/06/23Team MemberRelationshipSpecialtyStart DateEnd Date Eric Crooks MD [address] [place] [facility] [place] [phone] PCP - [facility] Medicine06/06/23 Team Status: Active Member Role Status Dates Eric Crooks MD Primary Care Provide r, Attending Provider Active Start: March 26, 2024 Team Status: Inactive Member Role Status Dates Eric Crooks MD Primary Care Provider Active Start: April 02, 2024 End: April 02, 2024Regino Quick MDAttending ProviderActiveStart: April 02, 2024 End: April 02, 2024Team MemberRelationshipSpecialtyStart DateEnd Date Eric Crooks MD [address] [place] [facility] [place] [phone] PCP - GeneralFamily Medicine06/06/23Team MemberRelationshipSpecialtyStart DateEnd Date Eric Crooks MD [address] [place] [phone] PCP - GeneralFamily Medicine06/06/23 Team Status: Inactive Member Role Status Dates Eric Crooks MD Primary Care Provider Active Start: April 28, 2024 End: April 28, 2024Archana Gonzalez APRN REFERRAL AND INFORMATION AIDE-CAttending ProviderActive Start: April 28, 2024 End: April 28, 2024 Team Status: Inactive Member Role Status Dates Eric Crooks MD Primary Care Provider Active Start: May 11, 2024 End: May 11, 2024Regino Quick MDAttblanca ProviderActiveStart: May 11, 2024 End: May 11, 2024 Team Status: Inactive Member Role Status Dates Eric Crooks MD Primary Care Provider Active Start: May 22, 2024 End: May 22enemiliana Bagley DOAttending ProviderActiveStart: May 22, 2024 End: May 22, 2024 Team Status: Inactive Member Role Status Dates Eric Crooks MD Primary Care Provide r, Attending Provider Active Start: July 06, 2024 End: July 06, 2024Team MemberRelationshipSpecialtyStart DateEnd Date Eric Crooks MD [address] [place] [phone] PCP - GeneralFamily Medicine06/06/23Team MemberRelationshipSpecialtyStart DateEnd Date Eric Crooks MD [address] [place] [phone] PCP - GeneralFamily Medicine06/06/23Team MemberRelationshipSpecialtyStart DateEnd Date Eric Crooks MD [address] [place] [phone] PCP - [facility]06/06/23Team MemberRelationshipSpecialtyStart DateEnd Date Eric Crooks MD [address] [place] [address] PCP - [facility]06/06/23 Team Status: Active Member Role/Relationship Status Dates Eric Crooks MD Primary Care Provider Active Team Status: Inactive Member Role/Relationship Status Dates Eric Crooks MD Primary Care Provider Active Start: March 29, 2025 End: March 29enjakelly Bagley DOAttblanca ProviderActiveStart: March 29, 2025 End: March 29, 2025 Goals (unrecognized section and content) Goals may [...] BE BASED ON THE PRIMARY CLINICAL RECORDS. [facility] [employer] [facility] provides no warranty or guarantee of the accuracy or completeness of information in this document.
== END 2025-03-31 08:52 | disposition home or self-care (01) ==
LOC: MAMMO 08:51
PROVIDERS: PCP Family Medicine; Visit Provider Family Medicine
DX: Z12.31 Encounter for screening mammogram for malignant neoplasm of breast (principal); Z80.3 Family history of malignant neoplasm of breast; Z80.8 Family history of malignant neoplasm of other organs or systems
CPT/HCPCS: 77063; 77067